=== PATIENT | female | born 1935 | race Caucasian/White ===

== ENCOUNTER → 2017-01-11 | Outpatient (CLI) | payer OTHER ==
[~2017-01-11] MED LIST: ACET-1311 PO; ASPEC325 PO; CAL PO; CALCTAB7 PO; CARB25TA12 PO; CLC100 PO; CLON0.5T3 PO; DICL-201 PO; FRRG PO; MULT-589 PO; POLY335019 PO; PRT40 PO
[2017-01-11 18:21] LABS: BASO % 0.2 %; BASO ABS # 0.02 K/uL (0-0.2); COMPLETE YES; EOS % 1.3 %; HEMATOCRIT 37.3 % (37-47); IG% 0.4 %; LYMPH % 31.4 %; LYMPH ABS # 3.04 K/uL (1.2-3.4); MEAN CELL VOLUME 90.1 fL (80-100); MEAN CORPUSCULAR HEMOGLOBIN 29.7 pg (25-34); MONO % 7.4 %; NEUT % 59.3 %; PLATELET COUNT 329 K/uL (130-400); RED BLOOD COUNT 4.14 M/uL (4.2-5.4); WHITE BLOOD COUNT 9.68 K/uL (4.8-10.8)
[2017-01-11 18:32] LABS: ALB/GLOB RATIO 0.7 (0.9-2); ALT/SGPT 22 U/L (12-78); AST/SGOT 15 U/L (15-37); BLOOD UREA NITROGEN 25 mg/dl (7-18); BUN/CREATININE RATIO 25.5 (10-20); CALCIUM 9.9 mg/dl (8.5-10.1); CARBON DIOXIDE 27 mmol/L (21-32); CHLORIDE 106 mmol/L (98-107); CREATININE 0.99 mg/dl (0.60-1.20); GLUCOSE 110 mg/dl (70-99); POTASSIUM 3.8 mmol/L (3.5-5.1); SODIUM 140 mmol/L (136-145)
[2017-01-11 18:42] LABS: ALKALINE PHOSPHATASE 82 U/L (45-117)
[2017-01-12 07:50] LABS: ESTIMATED AVERAGE GLUCOSE 126 mg/dl; HA1C FLAG Normal (Normal)
== END | disposition home or self-care (01) ==
LOC: C.LABSPEC 12:03
PROVIDERS: ATTEND Internal Medicine
DX: R73.9 Hyperglycemia, unspecified (principal); I10 Essential (primary) hypertension; G20 Parkinson's disease; F03.90 Unspecified dementia, unspecified severity, without behavioral disturbance, psychotic disturbance, mood disturbance, and anxiety

== ENCOUNTER 2017-08-29 13:05 | Emergency (ER) | payer OTHER ==
[~2017-08-29] VITALS: Ht 167.6 cm; Wt 67.9 kg
[2017-08-29 13:15] VITALS: TEMP 36.6; Ht 167.6 cm; Wt 67.9 kg
[2017-08-29] MEDS ORDERED: SODIUM CHLORIDE 0.9% 1000ML 1,000 ML IV ONE (13:29)
[2017-08-29] MEDS ORDERED: ACET-1311 PO (13:32)
--- NOTE | 2017-08-29 13:32 | EMERGENCY ROOM VISIT NOTE ---
History Report prepared by Kenneth: Barrington Marcelino Under the Supervision of: Dr. Deshawn Duarte M.D. First contact with patient: 13:23 Chief Complaint: OTHER COMPLAINT Stated Complaint: ABCESS History of Present Illness The patient is an 82 year old female who presents to the Emergency Room with complaints of constant pain in the right shoulder and upper extremity. The patient's pain is worsened with movement, and she is virtually unable to move the right upper extremity at all. She has had surgery on this joint in the past. The patient resides at [facility]. When the patient's grandson arrived at bedside I discussed the history with him again. He states that the patient has been having this pain for about the past month and did experience a falling episode about the same time ago. Source of History: patient Position: shoulder (Right) Timing: constant Modifying Factors (Worsening): other (ROM) Note: Patient is unable to move the RUE at all. Review of Systems See HPI for pertinent positives & negatives. A total of 10 systems reviewed and were otherwise negative. Past Medical & Surgical Medical Problems: (1) Dementia (2) Femoral Neck Fracture (3) FRACTURE R HUMERUS, PARKINSON'S, FALL (4) L HIP FX, PARKINSON'S DISEASE,FX R HUMERUS (5) MSC, PARKINSON'S (6) Parkinson disease (7) Scoliosis Family History Unobtainable due to patient's condition Social History Smoking Status: Never Smoker Drug Use: none Marital Status: Housing Status: retirement Occupation Status: retired Current/Historical Medications Scheduled Calcium Carbonate-Cholecalcife (Calcium 600 with Vitamin 600-400 mg-Unit), 1 TAB PO DAILY Carbidopa/Levodopa/Entacapone 25/100/200MG (Stalevo 100), 1 TAB PO TID Donepezil HCl (Aricept), 5 MG PO HS Polyethylene Glycol 3350 (Miralax), 17 GM PO DAILY Scheduled PRN Acetaminophen (Tylenol), 650 MG PO Q6 PRN for Pain Diclofenac (Voltaren), 75 MG PO BID PRN for Pain Magnesium Hydroxide (Milk of Magnesia), 30 ML PO DAILY PRN for Constipation Allergies Coded Allergies: Morphine (Verified Allergy, Mild, RASH, 03/30/16) Physical Exam Vital Signs Date Time Temp Pulse Resp B/P (MAP) Pulse Ox O2 Delivery O2 Flow Rate FiO2 08/29/17 17:13 73 18 184/85 96 08/29/17 15:58 79 18 174/90 97 Room Air 08/29/17 14:15 79 20 159/81 96 Room Air 08/29/17 14:15 96 Room Air 08/29/17 13:15 36.6 84 20 139/75 96 Room Air Physical Exam GENERAL: Awake, alert, well-appearing, in no acute distress HENT: Normocephalic, atraumatic. Oropharynx unremarkable. EYES: Normal conjunctiva. Sclera non-icteric. NECK: Supple. No nuchal rigidity. FROM. No JVD. RESPIRATORY: Clear to auscultation. CARDIAC: Regular rate, normal rhythm. Extremities warm and well perfused. Pulses equal. ABDOMEN: Soft, non-distended. No tenderness to palpation. No rebound or guarding. No masses. RECTAL: Deferred. MUSCULOSKELETAL: Chest examination reveals no tenderness. The back is symmetrical on inspection without obvious abnormality. There is no CVA tenderness to palpation. No joint edema. UPPER EXTREMITIES: The patient has what appears to be and abscess over the right shoulder area. There is an old surgical scar present. The shoulder appears to be frozen in place. She is exquisitely tender to touch and there is an area of erythema extending down the right elbow. LOWER EXTREMITIES: Calves are equal size bilaterally and non-tender. No edema. No discoloration. NEURO: Normal sensorium. No sensory or motor deficits noted. SKIN: No rash or jaundice noted. Medical Decision & Procedures ER Provider Diagnostic Interpretation: Radiology results as stated below per my review and radiologist interpretation: R SHOULDER MIN 2 VIEWS ROUTINE CLINICAL HISTORY: 82 years-old Female presenting with Pt c/o Rt shoulder pain. TECHNIQUE: Internal rotation, external rotation, and Grashey views of the right shoulder were obtained. COMPARISON: 04/02/2016. FINDINGS: Postsurgical changes of reverse total right shoulder arthroplasty. There is malalignment of the humeral component, which appears abnormally rotated and comparison to the prior radiographs. There may also be greater inferior subluxation than ideal. No gross evidence of a periprosthetic fracture. Surrounding osseous fragments are essentially unchanged since the prior radiographs. Osteopenia suspected. IMPRESSION: Possible malalignment of the humeral component. Query abnormal rotation and inferior subluxation. Orthopedic consult advised. Electronically signed by: Kings Ivey M.D. 08/29/2017 1:56 PM Dictated Date/Time: 08/29/2017 1:55 PM Laboratory Results 08/29/17 13:50 Red Blood Count 3.98, Mean Corpuscular Volume 88.7, Mean Corpuscular Hemoglobin 28.9, Mean Corpuscular Hemoglobin Concent 32.6, Mean Platelet Volume 8.5, Neutrophils (%) (Auto) 64.6, Lymphocytes (%) (Auto) 25.1, Monocytes (%) (Auto) 7.9, Eosinophils (%) (Auto) 2.0, Basophils (%) (Auto) 0.2, Neutrophils # (Auto) 5.96, Lymphocytes # (Auto) 2.32, Monocytes # (Auto) 0.73, Eosinophils # (Auto) 0.18, Basophils # (Auto) 0.02 08/29/17 13:50 Test 08/29/17 13:50 08/29/17 13:58 White Blood Count 9.23 K/uL (4.8-10.8) Red Blood Count 3.98 M/uL (4.2-5.4) Hemoglobin 11.5 g/dL (12.0-16.0) Hematocrit 35.3 % (37-47) Mean Corpuscular Volume 88.7 fL (80-100) Mean Corpuscular Hemoglobin 28.9 pg (25-34) Mean Corpuscular Hemoglobin Concent 32.6 g/dl (32-36) Platelet Count 346 K/uL (130-400) Mean Platelet Volume 8.5 fL (7.4-10.4) Neutrophils (%) (Auto) 64.6 % Lymphocytes (%) (Auto) 25.1 % Monocytes (%) (Auto) 7.9 % Eosinophils (%) (Auto) 2.0 % Basophils (%) (Auto) 0.2 % Neutrophils # (Auto) 5.96 K/uL (1.4-6.5) Lymphocytes # (Auto) 2.32 K/uL (1.2-3.4) Monocytes # (Auto) 0.73 K/uL (0.11-0.59) Eosinophils # (Auto) 0.18 K/uL (0-0.5) Basophils # (Auto) 0.02 K/uL (0-0.2) RDW Standard Deviation 44.8 fL (36.4-46.3) RDW Coefficient of Variation 13.6 % (11.5-14.5) Immature Granulocyte % (Auto) 0.2 % Immature Granulocyte # (Auto) 0.02 K/uL (0.00-0.02) Prothrombin Time 10.0 SECONDS (9.0-12.0) Prothromb Time International Ratio 1.0 (0.9-1.1) Activated Partial Thromboplast Time 23.2 SECONDS (21.0-31.0) Partial Thromboplastin Ratio 0.9 Anion Gap 6.0 mmol/L (3-11) Est Creatinine Clear Calc Drug Dose 44.9 ml/min Estimated GFR () 67.7 Estimated GFR (Non- 58.4 BUN/Creatinine Ratio 24.0 (10-20) Calcium Level 9.5 mg/dl (8.5-10.1) Total Bilirubin 0.4 mg/dl (0.2-1) Aspartate Amino Transf (AST/SGOT) 16 U/L (15-37) Alanine Aminotransferase (ALT/SGPT) 13 U/L (12-78) Alkaline Phosphatase 96 U/L (45-117) Total Protein 7.9 gm/dl (6.4-8.2) Albumin 3.0 gm/dl (3.4-5.0) Globulin 4.9 gm/dl (2.5-4.0) Albumin/Globulin Ratio 0.6 (0.9-2) Bedside Lactic Acid Venous 1.48 mmol/L (0.90-1.70) Labs reviewed by ED physician. Medications Administered Medications (Trade) Dose Ordered Sig/Дмитрий Route Start Time Stop Time Status Last Admin Dose Admin Sodium Chloride 1,000 ml @ 999 mls/hr Q1H1M ONCE IV 08/29/17 13:29 08/29/17 14:29 DC 08/29/17 14:13 999 MLS/HR ECG Per My Interpretation Indication: back/shoulder pain Rate (beats per minute): 77 Rhythm: normal sinus Findings: other (No FARHAD/STD, Normal Star) ED Course 1326: Past medical records reviewed. The patient was evaluated in room C9. A complete history and physical examination was performed. 1329: Ordered Sodium Chloride 1000 mL @ 999 mL/hr IV. 1346: I discussed the case with Dr. Arturo - Orthopedics. He states that the patient can follow-up in the office tomorrow. 1407: I discussed the specifics of the case in detail with the patient's daughter via a phone call. They are in agreement with the treatment plan. The patient will be discharged back to [facility]. Medical Decision Differential diagnosis: Etiologies such as fracture, dislocation, neurovascular compromise, compartment syndrome, soft tissue injury, as well as others were entertained. This is an 82-year-old female who presents emergency department complaining of what appears to be a cellulitic area to the right upper extremity. I did discuss this patient with both her primary care physician as well as Dr. Marks. Dr. Marks is concerned that the patient has a separation of her right shoulder arthroplasty. She was given a normal saline bolus here in the emergency department. Dr. Marks believes that this is the cause of the patient's symptoms. I will note that the patient does not have an elevation in her white blood cell count. Dr. Marks wishes to see the patient in the office tomorrow. She is hemodynamically stable I feel safe enough to be discharged. I did discuss this with the patient's daughter who is the POA who was also in agreement with the treatment plan. It is hard to nail down exactly when the patient's shoulder became , I suspect it was due to a fall approximately 1 month ago though the daughter notes the patient has been unable to move the shoulder since her surgery. Medication Reconcilliation Current Medication List: was personally reviewed by me Blood Pressure Screening Patient's blood pressure: Elevated blood pressure Blood pressure disposition: Elevated BP felt to be situational Consults Time Called: 1341 Consulting Physician: Dr. Arturo Yanez [facility] Returned Call: [phone] I discussed the case with Dr. Arturo Zendejas. He states that the patient can follow-up in the office tomorrow. Impression Primary Impression: Dislocation, shoulder closed Scribe Attestation The scribe's documentation has been prepared under my direction and personally reviewed by me in its entirety. I confirm that the note above accurately reflects all work, treatment, procedures, and medical decision making performed by me. Departure Information Dispostion Home / Self-Care Referrals Thony Randhawa M.D. (PCP) Forms HOME CARE DOCUMENTATION FORM, IMPORTANT VISIT INFORMATION, WORK / SCHOOL INSTRUCTIONS Patient Instructions My [facility] Additional Instructions NEED FOLLOW UP WITH DR MARKS'S OFFICE TOMORROW NEED CARTER Banks Confer available on telephone for Dr Marks You have been examined and treated today on an emergency basis only. This is not a substitute for, or an effort to provide, complete comprehensive medical care. It is impossible to recognize and treat all injuries or illnesses in a single emergency department visit. It is therefore important that you follow up closely with Dr Ted Garcia. Call as soon as possible for an appointment. Thank you for your time and consideration. I look forward to speaking with you again soon. Please don't hesitate to call us if you have any questions. Problem Qualifiers Primary Impression: Dislocation, shoulder closed Encounter type: initial encounter Laterality: right Qualified Codes: S43.004A - Unspecified dislocation of right shoulder joint, initial encounter
[2017-08-29] MEDS ORDERED: CALC-585 PO (13:34)
[2017-08-29] MEDS ORDERED: CARBTAB2 PO (13:36)
[2017-08-29] MEDS ORDERED: DICL-201 PO (13:41)
[2017-08-29] MEDS ORDERED: MOMLX PO (13:43)
[2017-08-29] MEDS ORDERED: POLY335019 PO (13:43)
[2017-08-29] MEDS ORDERED: DONE5TAB9 PO (13:44)
--- NOTE | 2017-08-29 13:58 | DIAGNOSTIC IMAGING REPORT ---
R SHOULDER MIN 2 VIEWS ROUTINE CLINICAL HISTORY: 82 years-old Female presenting with Pt c/o Rt shoulder pain. TECHNIQUE: Internal rotation, external rotation, and Grashey views of the right shoulder were obtained. COMPARISON: 04/02/2016. FINDINGS: Postsurgical changes of reverse total right shoulder arthroplasty. There is malalignment of the humeral component, which appears abnormally rotated and comparison to the prior radiographs. There may also be greater inferior subluxation than ideal. No gross evidence of a periprosthetic fracture. Surrounding osseous fragments are essentially unchanged since the prior radiographs. Osteopenia suspected. IMPRESSION: Possible malalignment of the humeral component. Query abnormal rotation and inferior subluxation. Orthopedic consult advised. Electronically signed by: Kings Ivey M.D. 08/29/2017 1:56 PM Dictated Date/Time: 08/29/2017 1:55 PM
[2017-08-29 14:15] VITALS: O2SAT 96
[2017-08-29 14:18] LABS: BASO % 0.2 %; BASO ABS # 0.02 K/uL (0-0.2); EOS ABS # 0.18 K/uL (0-0.5); HEMATOCRIT 35.3 % (37-47); HEMOGLOBIN 11.5 g/dL (12.0-16.0); IG# 0.02 K/uL (0.00-0.02); LYMPH % 25.1 %; LYMPH ABS # 2.32 K/uL (1.2-3.4); MEAN CELL VOLUME 88.7 fL (80-100); MEAN CORPUSCULAR HEMOGLOBIN 28.9 pg (25-34); MEAN CORPUSCULAR HGB CONC 32.6 g/dl (32-36); MEAN PLATELET VOLUME 8.5 fL (7.4-10.4); MONO % 7.9 %; MONO ABS # 0.73 K/uL (0.11-0.59); NEUT % 64.6 %; NEUT ABS # 5.96 K/uL (1.4-6.5); PLATELET COUNT 346 K/uL (130-400); RED CELL DISTRIBUTION WIDTH CV 13.6 % (11.5-14.5); RED CELL DISTRIBUTION WIDTH SD 44.8 fL (36.4-46.3); WHITE BLOOD COUNT 9.23 K/uL (4.8-10.8)
[2017-08-29 14:26] LABS: PTT PATIENT 23.2 SECONDS (21.0-31.0)
[2017-08-29 14:35] LABS: CALCIUM 9.5 mg/dl (8.5-10.1); CREATININE 0.92 mg/dl (0.60-1.20); POTASSIUM 3.8 mmol/L (3.5-5.1)
[2017-08-29 14:37] LABS: TOTAL PROTEIN 7.9 gm/dl (6.4-8.2)
[2017-08-29 17:13] VITALS: BP 184/85; PULSE 73; O2SAT 96
--- NOTE | 2017-08-30 07:18 | DIAGNOSTIC IMAGING REPORT ---
CHEST ONE VIEW PORTABLE CLINICAL HISTORY: 82 years-old Female presenting with Sepsis. TECHNIQUE: Portable upright AP view of the chest was obtained. COMPARISON: 03/30/2016. FINDINGS: Atherosclerosis of aortic arch. Cardiac silhouette enlarged. Lungs and pleural spaces clear. Osteopenia. Scoliotic curvature of the spine. Interval replacement of the right humeral hardware with a reverse total right shoulder arthroplasty. The metaphyseal component appears somewhat more inferiorly subluxed than expected. Upper abdomen normal. IMPRESSION: 1. Cardiomegaly. No other convincing evidence of acute cardiopulmonary disease. 2. Possible inferior subluxation of the metaphyseal component of the reverse right total shoulder arthroplasty. Correlate clinically. Electronically signed by: Kings Ivey M.D. 08/30/2017 7:16 AM Dictated Date/Time: 08/30/2017 7:15 AM
== END 2017-08-29 17:09 | disposition home or self-care (01) ==
LOC: EDBD 13:05 → C.EDC 13:07
DX: S43.004A Unspecified dislocation of right shoulder joint, initial encounter (principal); X58.XXXA Exposure to other specified factors, initial encounter; Y92.129 Unspecified place in nursing home as the place of occurrence of the external cause; M25.511 Pain in right shoulder; G31.83 Neurocognitive disorder with Lewy bodies

== ENCOUNTER 2018-06-08 09:55 | Inpatient (IN) ==
[2018-06-08] MEDS ORDERED: SODIUM CHLORIDE 0.9% 1000ML 250 ML IV ONE (10:58)
[2018-06-08] MEDS ORDERED: SODIUM CHLORIDE 0.9% 1000ML 1,000 ML IV SCH (11:00)
[2018-06-08 11:29] LABS: Basophils # (auto) 0.01 K/uL (0-0.2); Basophils % (auto) 0.1 %; Eosinophils # (auto) 0.09 K/uL (0-0.5); Hematocrit (blood only) 35.5 % (37-47); Hemoglobin 11.2 g/dL (12.0-16.0); Immature Granulocytes # (auto) 0.04 K/uL (0.00-0.02); Immature Granulocytes % (auto) 0.4 %; Lymphocytes # (auto) 2.39 K/uL (1.2-3.4); Lymphocytes % (auto) 26.7 %; Mean Corpuscular Hgb Conc 31.5 g/dL (32-36); Mean Corpuscular Volume 82.8 fL (80-100); Mean Platelet Volume 8.5 fL (7.4-10.4); Monocytes # (auto) 0.64 K/uL (0.11-0.59); Monocytes % (auto) 7.2 %; Neutrophils # (auto) 5.78 K/uL (1.4-6.5); Neutrophils % (auto) 64.6 %; Platelet Count 415 K/uL (130-400); RDW Coefficient of Variation 15.5 % (11.5-14.5); Red Blood Count 4.29 M/uL (4.2-5.4); White Blood Count 8.95 K/uL (4.8-10.8)
--- NOTE | 2018-06-08 11:39 | CT Scan Report ---
CT head/brain wo con CLINICAL HISTORY: Acute change in mental status COMPARISON STUDY: 03/03/2016 TECHNIQUE: Axial CT of the brain is performed from the vertex to the skull base. IV contrast was not administered for this examination. A dose lowering technique was utilized adhering to the principles of ALARA. CT DOSE: 537.48 mGy.cm FINDINGS: No intra or extra-axial mass lesions are visualized. There is no CT evidence of acute cortical infarc tion. There is no evidence of midline shift. There is no acute hemorrhage. No calvarial fractures ar e visualized. There are patchy white matter hypodensities likely on a small vessel basis. There is no evidence of pathologic ventricular dilatation. There is a sphenoid sinus air-fluid level, multiple ethmoid air cells are opacified. IMPRESSION: 1. No acute intracranial findings 2. Sphenoid sinus air-fluid level. Multiple opacified ethmoid air cells. Clinical correlation in rega rds to acute sinusitis is recommended. Electronically signed by: Dylon Burnett M.D. 06/08/2018 11:37 AM
[2018-06-08 11:45] LABS: Alanine Aminotransferase 8 U/L (12-78); Albumin Level 3.7 gm/dl (3.4-5.0); Aspartate Aminotransferase 10 U/L (15-37); BUN Creatinine Ratio 30.6 (10-20); Blood Urea Nitrogen 57 mg/dl (7-18); Calcium 9.7 mg/dl (8.5-10.1); Carbon Dioxide 21 mmol/L (21-32); Chloride 101 mmol/L (98-107); Est GFR (African American) 28.7; Est GFR (Non-African American) 24.8; Glucose 104 mg/dl (70-99); Magnesium 3.3 mg/dl (1.8-2.4); Sodium 132 mmol/L (136-145)
[2018-06-08 11:55] LABS: Albumin Globulin Ratio 0.7 (0.9-2); Alkaline Phosphatase 90 U/L (45-117); Bilirubin,Total 0.3 mg/dl (0.2-1); Globulin 5.6 gm/dl (2.5-4.0); Total Protein 9.3 gm/dl (6.4-8.2)
--- NOTE | 2018-06-08 11:55 | XRay Report ---
XR chest 1V portable CLINICAL HISTORY: weakness COMPARISON STUDY: Chest radiograph August 29, 2017. FINDINGS: Lung volumes are normal. There is no pneumothorax or pleural effusion. No consolidation or evidence for pulmonary edema. Cardiomediastinal silhouette is normal. There is apparent subluxation/d islocation of the right shoulder arthroplasty. IMPRESSION: 1. No acute cardiopulmonary findings. 2. Apparent subluxation/dislocation of the right shoulder arthroplasty. Electronically signed by: Tanner Jovel M.D. 06/08/2018 11:53 AM
[2018-06-08] MEDS ORDERED: AMPICILLIN/SULBACTAM SOD 3,000 MG in 0.9 % SODIUM CHLORIDE 100 ML IV STA (13:05)
[2018-06-08 13:46] LABS: Appearance Urine Clear (Clear); Bilirubin Urine Negative (Negative); Color Urine Yellow; Glucose Urine UA Negative (Negative); Ketones Urine 1+ (Negative); Leukocyte Esterase Urine Negative (Negative); Nitrite Urine Negative (Negative); Protein Urine Negative (Negative); Specific Gravity Urine 1.025 (1.000-1.030); Urobilinogen Urine Negative (Negative)
--- NOTE | 2018-06-08 15:35 | History & Physical Report ---
Date of Service June 08, 2018 Assessment & Plan (1) MIGUELANGEL (acute kidney injury): BUN: 57, Cr: 1.8, GFR: 24, BUN/Cr ratio: 30. Baseline Cr 0.9 with baseline GFR 58 to >60 Pt dry on exam. Also has been on bactrim and takes diclofenac daily In ER was given 250ml bolus NSS -IVF -avoid nephrotoxic agents when possible -monitor renal functions (2) Altered mental status: Pt with hx Parkinson's, dementia. Reported pt with increased garbled speech today with lethargy, global weakness and CHUN In ER no leukocytosis. UA unremarkable. CT HEAD: No acute intracranial findings. Sphenoid sinus air-fluid level. Multiple opacified ethmoid air cells. CXR: No acute cardiopulmonary findings. May be secondary to infection -MRI to r/o stroke/lesion -neuro checks Q4H -if no improvement consider neuro consult (3) Wound of right shoulder: Reported chronic wound to R shoulder. and wound to R shoulder and that had some foul smelling purulent discharge noted on 05/26/18 and pt was started on Bactrim. wound culture: staph aureus which was resistant to PCN G. In ER pt afebrile, P: 82, R: 16, BP: 174/62, 95% on RA. WBC: 8, lactate: 0.8 -wound culture pending -blood culture pending -Rocephin, daptomycin -wound consult -cbc in am (4) Shoulder subluxation, right: It is reported that pt has chronic deformity to R shoulder. Hx R humeral fracture with ORIF in 02/2016 then with failure of internal fixation and pt had R shoulder replacement in 03/2016. -Apparent subluxation/dislocation of the right shoulder arthroplasty seen on CXR today. -Last R shoulder xray found was from 08/2017: Possible malalignment of the humeral component. Query abnormal rotation and inferior subluxation. -continue tylenol prn pain -for now will hold tramadol with pt's altered symptoms -Ortho consult, appreciate recommendations (5) Chronic anemia: Hx Chronic anemia Hgb: 11.2. Baseline 9-10. -continue iron supplement -monitor H&H (6) Parkinson disease: (7) Dementia: -continue carbidopa-levodopa, donepezil DVT Prophylaxis -Heparin SQ DNR as per [facility] records Follows with Dr Bailon for routine care Pt was seen with Dr Dietrich. See addendum History of Present Illness Chief Complaint: Altered speech Primary Care Provider: Rachel Bailon DO Pt is 83 y/o F with PMH Parkinson's, dementia presented to ER from [facility] for reported lethargy, garbled speech, weakness and reported CHUN this morning. Was evaluated approx 9am per records and reported global weakness, lethargy and pt had reported CHUN since waking up. [facility] records report pt's baseline is that she is oriented with speech limitations but can carry conversation and ambulates with walker. Currently pt oriented to person, knows her age, unsure of year, knows she has been to this facility before but is unsure of name or place. Pt reports some cough. Also reports vomiting and that she had some upper abdominal discomfort. Reports chronic constipation. She has hx R humeral fracture with ORIF in 02/2016 then with failure of internal fixation and pt had R shoulder replacement in 03/2016. It is reported that pt has chronic deformity and wound to R shoulder and that had some foul smelling purulent discharge noted on 05/26/18 and pt was started on Bactrim. wound culture : staph aureus which was resistant to PCN G. Pt reports had limited ROM R shoulder "for awhile", doesn't think had acute injury. Denies fever/chills, diaphoresis, N/V/D, dizziness, falls, vision changes, CP, SOB, rhinorrhea, paresthesias, urinary symptoms. Unable to obtain FH. Allergies Allergy/AdvReac Type Severity Reaction Status Date / Time morphine Allergy Mild RASH Verified 06/08/18 11:56 Home Medications Home Medications Medication Instructions Recorded Confirmed Type acetaminophen 325 mg tablet 650 mg PO Q6H PRN tab 01/12/18 06/08/18 History acetaminophen 500 mg capsule 1,000 mg PO .q 12 cap 01/12/18 06/08/18 History calcium carbonate 600 mg-vitamin 600 tab PO DAILY tab 01/12/18 06/08/18 History D3 1,000 unit-vitamin K2 90 mcg tab carbidopa 25 mg-levodopa 100 1 tab PO TID 01/12/18 06/08/18 History mg-entacapone 200 mg tablet diclofenac sodium 75 mg 75 mg PO BID 01/12/18 06/08/18 History tablet,delayed release donepezil 5 mg tablet 5 mg PO HS tab 01/12/18 06/08/18 History polyethylene glycol 3350 17 17 gm PO QAM gm 01/12/18 06/08/18 History gram/dose oral powder ranitidine 150 mg tablet 150 mg PO HS tab 01/12/18 06/08/18 History ferrous sulfate 325 mg PO QAM 06/08/18 06/08/18 History sennosides [senna] 8.6 mg PO HS 06/08/18 06/08/18 History sulfamethoxazole-trimethoprim 1 tab PO BID 06/08/18 06/08/18 History tramadol 25 mg PO Q6H PRN 06/08/18 06/08/18 History Past Med/Surg History Medical History Chronic anemia (Chronic) Parkinson disease (Chronic) Dementia (Chronic) Scoliosis (Chronic) Dementia (Chronic) Fall (Chronic) Femoral neck fracture (Chronic) Fracture of right humerus (Chronic) Parkinsons (Chronic) S/p left hip fracture (Chronic) Scoliosis (Chronic) Surgical History History of left hip replacement (Resolved) History of arthroplasty of right shoulder (Resolved) 2016 - Dr Morris Social History Current Living Situation: Assisted Current Living Situation Comment: [facility], memory care unit Feels Safe at Home: Yes Safety Concerns: Feels Safe At This Time Smoking Status: Never smoker Do You Dip or Chew Tobacco: No Hx Alcohol Use: No Hx Substance Use: No Communication Ability: Impaired Communication Ability Comment: mumbling speech patteren, able to make needs known Custodial Laborer Required: No Review of Systems See HPI, further ROS unable to be obtained secondary mental status Physical Exam 2 Vital Signs (Past 24 Hours): Last Vital Signs Temp 37.0 C 06/08/18 10:05 Pulse 76 06/08/18 14:42 Resp 15 06/08/18 14:42 BP 131/64 06/08/18 14:42 Pulse Ox 94 06/08/18 14:42 Physical Exam: General: no acute distress, WDWN Head: normocephalic, atraumatic Eyes: PERRL, EOM's intact, conjunctiva non-injected, anicteric ENT: normal inspection external ears, nose, mucous membranes dry Neck: supple, trachea midline, non-tender Lungs: clear, no respiratory distress, no wheezing/rhonchi/rales CV: RRR, no murmur, no pretibial edema Abd: normal BS, soft, upper abdominal tenderness to palpation Ext: no cyanosis, no calf tenderness; R shoulder: +wound with purulent drainage anterior shoulder, limited ROM R shoulder and R arm, distal pulses palpable, brisk capillary refill diffuse extremity weakness, able to move LUE, and straight leg raise BLE Neuro: A&O to person, unsure of place or time. n +flat faces, garbled speech, no facial drooping. Skin: warm, dry, R shoulder as above Results & Data Laboratory Results Short CBC 06/08/18 Range/Units 11:15 WBC 8.95 (4.8-10.8) K/uL Hgb 11.2 L (12.0-16.0) g/dL Hct 35.5 L (37-47) % Plt Count 415 H (130-400) K/uL BMP 06/08/18 11:15 Sodium 132 L Potassium 5.0 Chloride 101 Carbon Dioxide 21 BUN 57 H Creatinine 1.86 H Glucose 104 H Calcium 9.7 Liver Function 06/08/18 Range/Units 11:15 Total Bilirubin 0.3 (0.2-1) mg/dl AST 10 L (15-37) U/L ALT 8 L (12-78) U/L Alkaline Phosphatase 90 (45-117) U/L Albumin 3.7 (3.4-5.0) gm/dl Urine 06/08/18 Range/Units 13:20 Urine Color Yellow Urine Appearance Clear (Clear) Urine pH 5.0 (4.5-7.5) Ur Specific [place] 1.025 (1.000-1.030) Urine Protein Negative (Negative) Urine Glucose (UA) Negative (Negative) Lactate 0.8 (0.4-2.0) Diagnostic Findings CT HEAD: IMPRESSION: 1. No acute intracranial findings 2. Sphenoid sinus air-fluid level. Multiple opacified ethmoid air cells. Clinical correlation in regards to acute sinusitis is recommended. CXR: IMPRESSION: 1. No acute cardiopulmonary findings. 2. Apparent subluxation/dislocation of the right shoulder arthroplasty. ECG Rate (beats per minute): 77 Rhythm: sinus rhythm Additional Comments: poor tracing Supervising Physician Co-Signing Physician Notes Patient is an 83 yr female with history of Parkinson's disease, dementia and other problems presents with history of pathology, normal speech, generalized weakness, headache and possible confusion. History is difficult to obtain secondary to garbled speech. Please review HPI for complete presentation. Her CT head showed No acute intracranial findings, but showed possible sinusitis. She clinically looked dehydrated and her Cr is elevated 1.86. She was placed on Bactrim for R shoulder wound Infection recently. Also was on diclofenac for pain Control. She was also noted to have chronic subluxation of the right shoulder arthroplasty with significant change in alignment. On Exam Patient is chronic ill appearing, lungs CTA, S1, S2, No pedal edema. Right shoulder wound with purulent drainage noted, RUE is limited ROM. Neuro:able to move all extremities. Acute renal Insufficiency--Plan to start on IV fluids, discontinue bactrim, diclofenac. monitor renal function. Metabolic Encephalopathy--likely 2/ 2 should wound infection. R/O CVA. Will be started on Doxy and Ceftriaxone. Blood and wound cultures will be obtained. Orthopedics consulted. Will also obtain MRI brain to r/o acute intracranial abnormalities. Consider Neurology eval if no improvement. Speech eval ordered. _ (1) Altered mental status Altered mental status type: unspecified Coma depth: Coma timing: Qualified Code(s): R41.82 - Altered mental status, unspecified
--- NOTE | 2018-06-08 15:46 | Emergency Department Note ---
Entered by Zulma Hanson acting as a scribe for History of Present Illness General Chief complaint: Altered Mental Status Stated complaint: ams/weakness, [facility] Limitations: altered mental status History of Present Illness Provider complaint: altered mental status Onset (ago): day(s) (recently) Location: head Pain Consistency: + other (episode) Quality: + other (altered mental status) Associated symptoms: + other (Associated symptoms: "not acting herself", lack of voiding) The patient is an 83 year old woman who presents to the Emergency Room with complaints of an episode of altered mental status beginning recently. Patient arrives from [facility]. Nursing notes state the patient was "not acting herself." Per reports she did not void yesterday. History limited secondary to patient's altered mental status. Home Medications Home Medications Medication Instructions Recorded Confirmed Type acetaminophen 325 mg tablet 650 mg PO Q6H PRN tab 01/12/18 06/08/18 History acetaminophen 500 mg capsule 1,000 mg PO .q 12 cap 01/12/18 06/08/18 History calcium carbonate 600 mg-vitamin 600 tab PO DAILY tab 01/12/18 06/08/18 History D3 1,000 unit-vitamin K2 90 mcg tab carbidopa 25 mg-levodopa 100 1 tab PO TID 01/12/18 06/08/18 History mg-entacapone 200 mg tablet diclofenac sodium 75 mg 75 mg PO BID 01/12/18 06/08/18 History tablet,delayed release donepezil 5 mg tablet 5 mg PO HS tab 01/12/18 06/08/18 History polyethylene glycol 3350 17 17 gm PO QAM gm 01/12/18 06/08/18 History gram/dose oral powder ranitidine 150 mg tablet 150 mg PO HS tab 01/12/18 06/08/18 History ferrous sulfate 325 mg PO QAM 06/08/18 06/08/18 History sennosides [senna] 8.6 mg PO HS 06/08/18 06/08/18 History sulfamethoxazole-trimethoprim 1 tab PO BID 06/08/18 06/08/18 History tramadol 25 mg PO Q6H PRN 06/08/18 06/08/18 History Allergies Allergy/AdvReac Type Severity Reaction Status Date / Time morphine Allergy Mild RASH Verified 06/08/18 11:56 Past Med/Surg History Medical History Chronic anemia (Chronic) Parkinson disease (Chronic) Dementia (Chronic) Scoliosis (Chronic) Dementia (Chronic) Fall (Chronic) Femoral neck fracture (Chronic) Fracture of right humerus (Chronic) Parkinsons (Chronic) S/p left hip fracture (Chronic) Scoliosis (Chronic) Surgical History History of left hip replacement (Resolved) History of arthroplasty of right shoulder (Resolved) 2016 - Dr Morris Social History Current Living Situation: [facility] Current Living Situation Comment: [facility], memory care unit Feels Safe at Home: Yes Safety Concerns: Feels Safe At This Time Smoking Status: Never smoker Do You Dip or Chew Tobacco: No Hx Alcohol Use: No Hx Substance Use: No Communication Ability: Impaired Review of Systems Unobtainable due to cognitive status Physical Exam Vital Signs Vital Signs - 24 hr 06/10/18 07:50 06/10/18 11:28 06/10/18 11:43 Temperature 36.8 C 36.8 C Temperature Source Oral Oral Pulse Rate Pulse Rate [Apical] Pulse Rate [Brachial] 86 59 L Pulse Rhythm [Brachial] Pulse Strength [Brachial] Respiratory Rate 16 18 Respiratory Effort / Characteristics Non-Labored Respiratory Depth Normal Respiratory Pattern Regular Blood Pressure [Left Arm] Blood Pressure [Right Arm] 153/77 H 122/82 Blood Pressure Mean [Left Arm] Blood Pressure Mean [Right Arm] 102 95 Blood Pressure Position [Left Arm] Blood Pressure Position [Right Arm] Lying Pulse Oximetry 95 97 Oxygen Delivery Method Room Air Room Air 06/10/18 15:04 06/10/18 19:43 06/10/18 22:38 Temperature 36.4 C L 36.9 C 36.5 C Temperature Source Oral Oral Oral Pulse Rate Pulse Rate [Apical] 91 H Pulse Rate [Brachial] 102 H 92 H Pulse Rhythm [Brachial] Pulse Strength [Brachial] Respiratory Rate 16 18 20 Respiratory Effort / Characteristics Respiratory Depth Respiratory Pattern Blood Pressure [Left Arm] Blood Pressure [Right Arm] 120/69 163/66 H 110/79 Blood Pressure Mean [Left Arm] Blood Pressure Mean [Right Arm] 86 98 89 Blood Pressure Position [Left Arm] Blood Pressure Position [Right Arm] Lying Lying Lying Pulse Oximetry 96 97 94 Oxygen Delivery Method Room Air Room Air Room Air 06/10/18 22:44 06/10/18 23:46 06/11/18 03:09 Temperature 36.8 C Temperature Source Oral Pulse Rate 89 Pulse Rate [Apical] Pulse Rate [Brachial] 88 Pulse Rhythm [Brachial] Regular Pulse Strength [Brachial] Normal Respiratory Rate 16 Respiratory Effort / Characteristics Non-Labored Non-Labored Respiratory Depth Normal Normal Respiratory Pattern Regular Regular Blood Pressure [Left Arm] 128/72 Blood Pressure [Right Arm] Blood Pressure Mean [Left Arm] 90 Blood Pressure Mean [Right Arm] Blood Pressure Position [Left Arm] Lying Blood Pressure Position [Right Arm] Pulse Oximetry 97 Oxygen Delivery Method Room Air Room Air Vital signs reviewed. General: Chronically ill-appearing elderly woman, somnolent but arousal to voice HEENT: No scleral icterus, PERRLA, neck supple. Atraumatic. Dry mucous membranes. Cardiovascular: Regular rate and rhythm, no extra sounds. bilaterallyPulmonary: Coarse breath sounds at the bases Abdomen: Soft, nontender, nondistended, positive bowel sounds. Musculoskeletal: Atraumatic, no peripheral edema. Neurologic: Unable to follow commands, Skin: Warm, dry, no rash. Linear wound to right axilla, dressing in place. Blanchable vascular deformity to right bicep, appears to be superficial, nontender. Course 1055: Past medical records reviewed. The patient was evaluated in room C5, and a complete history and physical examination were performed. 1354: I reevaluated the patient. 1421: I [facility] the [facility] He will evaluate the patient for further management. Consultations Consultation #1: [facility] He will evaluate the patient for further management. Time: 14:21 Administered Medications Acetaminophen (Tylenol) 650 mg PO Q4H PRN PRN Reason: Pain or Fever Stop: 07/08/18 16:53 Last Admin: 06/09/18 10:43 Dose: 650 mg Carbidopa/Levodopa (Sinemet 25/100 Mg) 1 tab PO TID ZOIE Stop: 07/08/18 20:59 Last Admin: 06/10/18 20:51 Dose: 1 tab Admin: 06/10/18 13:48 Dose: 1 tab Admin: 06/10/18 08:19 Dose: 1 tab Admin: 06/09/18 20:23 Dose: 1 tab Admin: 06/09/18 14:29 Dose: 1 tab Admin: 06/09/18 09:28 Dose: 1 tab Admin: 06/08/18 20:30 Dose: 1 tab Donepezil HCl (Aricept) 5 mg PO HS ZOIE Stop: 07/08/18 20:59 Last Admin: 06/10/18 20:51 Dose: 5 mg Admin: 06/09/18 20:24 Dose: 5 mg Admin: 06/08/18 20:30 Dose: 5 mg Entacapone (Comtan) 200 mg PO TID OZIE Stop: 07/08/18 20:59 Last Admin: 06/10/18 20:51 Dose: 200 mg Admin: 06/10/18 13:48 Dose: 200 mg Admin: 06/10/18 08:19 Dose: 200 mg Admin: 06/09/18 20:24 Dose: 200 mg Admin: 06/09/18 14:29 Dose: 200 mg Admin: 06/09/18 09:28 Dose: 200 mg Admin: 06/08/18 20:30 Dose: 200 mg Ferrous Sulfate (Feosol) 325 mg PO QAM ZOIE Stop: 07/09/18 08:59 Last Admin: 06/10/18 08:19 Dose: 325 mg Admin: 06/09/18 09:27 Dose: 325 mg Heparin Sodium (Porcine) (Heparin Sodium (Porcine)) 5,000 units SQ Q8 ZOIE Stop: 07/08/18 21:59 Last Admin: 06/11/18 06:13 Dose: Not Given Admin: 06/10/18 20:52 Dose: 5,000 units Admin: 06/10/18 13:48 Dose: 5,000 units Admin: 06/10/18 05:55 Dose: 5,000 units Admin: 06/09/18 22:25 Dose: 5,000 units Admin: 06/09/18 14:29 Dose: Not Given Admin: 06/09/18 05:26 Dose: 5,000 units Admin: 06/08/18 20:37 Dose: 5,000 units Ceftriaxone Sodium (Rocephin) 1,000 mg in 50 mls @ 100 mls/hr IV Q24H ZOIE Stop: 06/18/18 16:59 Last Infusion: 06/10/18 18:30 Dose: 0 mls/hr Admin: 06/10/18 17:47 Dose: 100 mls/hr Infusion: 06/09/18 18:38 Dose: 0 mls/hr Admin: 06/09/18 17:55 Dose: 100 mls/hr Infusion: 06/08/18 18:11 Dose: 0 mls/hr Admin: 06/08/18 17:38 Dose: 100 mls/hr Daptomycin 225 mg/ Syringe 4.5 mls @ 3 mls/min IV Q48H ZOIE; Protocol Stop: 06/18/18 17:59 Last Admin: 06/10/18 17:47 Dose: 3 mls/min Ranitidine HCl (Zantac) 150 mg PO HS ZOIE Stop: 07/08/18 20:59 Last Admin: 06/10/18 20:52 Dose: 150 mg Admin: 06/09/18 20:24 Dose: 150 mg Admin: 06/08/18 20:30 Dose: 150 mg Sennosides (Senokot) 8.6 mg PO [facility] Stop: 07/08/18 20:59 Last Admin: 06/10/18 20:51 Dose: 8.6 mg Admin: 06/09/18 20:24 Dose: 8.6 mg Admin: 06/08/18 20:30 Dose: 8.6 mg Discontinued Medications Sodium Chloride (Nss 1000ml) 250 mls @ 999 mls/hr IV .Q16M ONE Stop: 06/08/18 11:13 Last Infusion: 06/08/18 12:01 Dose: 0 mls/hr Admin: 06/08/18 11:45 Dose: 999 mls/hr Sodium Chloride (Nss 1000ml) 1,000 mls @ 125 mls/hr IV .Q8H ZOIE Stop: 07/08/18 10:59 Last Infusion: 06/08/18 16:28 Dose: 0 mls/hr Infusion: 06/08/18 16:28 Dose: 0 mls/hr Admin: 06/08/18 12:11 Dose: 125 mls/hr Ampicillin Sodium/Sulbactam Sodium 3,000 mg/ Sodium Chloride 108 mls @ 200 mls/ hr IV NOW STA Stop: 06/08/18 13:37 Last Infusion: 06/08/18 14:05 Dose: 0 mls/hr Admin: 06/08/18 13:30 Dose: 200 mls/hr Sodium Chloride (Nss 1000ml) 1,000 mls @ 80 mls/hr IV .[id number] ZOIE Stop: 06/09/18 17:53 Last Infusion: 06/09/18 17:56 Dose: 0 mls/hr Admin: 06/09/18 05:25 Dose: 80 mls/hr Infusion: 06/09/18 05:25 Dose: 80 mls/hr Admin: 06/08/18 17:09 Dose: 80 mls/hr Daptomycin 300 mg/ Syringe 6 mls @ 3 mls/min IV Q48H ZOIE; Protocol Stop: 06/18/18 17:59 Last Admin: 06/08/18 18:08 Dose: 3 mls/min Medical Decision Making Differential Diagnosis Differential includes acute coronary syndrome, myocardial infarction, CVA, TIA , anemia, infection, pneumonia, UTI, pyelonephritis, poor nutrition, dehydration , electrolyte disturbance,hypoglycemia. Medical Records Attestation: I reviewed the patient's medical records. Home Medications Current Medication List: was personally reviewed by me Laboratory Data Attestation: I reviewed the patient's lab results. Result diagrams: 06/10/18 05:46 06/10/18 05:46 Lab Results 06/08/18 06/08/18 06/08/18 Range/Units 11:15 11:15 11:15 WBC 8.95 (4.8-10.8) K/uL RBC 4.29 (4.2-5.4) M/uL Hgb 11.2 L (12.0-16.0) g/dL Hct 35.5 L (37-47) % MCV 82.8 (80-100) fL MCH 26.1 (25-34) pg MCHC 31.5 L (32-36) g/dL RDW Std Deviation 47.0 H (36.4-46.3) fL RDW Coeff of Jonathan 15.5 H (11.5-14.5) % Plt Count 415 H (130-400) K/uL MPV 8.5 (7.4-10.4) fL Immature Gran % (Auto) 0.4 % Neut % (Auto) 64.6 % Lymph % (Auto) 26.7 % [place] % (Auto) 7.2 % Eos % (Auto) 1.0 % Baso % (Auto) 0.1 % Immature Gran # (Auto) 0.04 H (0.00-0.02) K/uL Neut # (Auto) 5.78 (1.4-6.5) K/uL Lymph # (Auto) 2.39 (1.2-3.4) K/uL [place] # (Auto) 0.64 H (0.11-0.59) K/uL Eos # (Auto) 0.09 (0-0.5) K/uL Baso # (Auto) 0.01 (0-0.2) K/uL PT (9.0-12.0) Seconds INR (0.9-1.1) Sodium 132 L (136-145) mmol/L Potassium 5.0 (3.5-5.1) mmol/L Chloride 101 (98-107) mmol/L Carbon Dioxide 21 (21-32) mmol/L Anion Gap 10.0 (3-11) BUN 57 H (7-18) mg/dl Creatinine 1.86 H (0.6-1.2) mg/dl Est Cr Clr Drug Dosing Not Reportable Est GFR ( Amer) 28.7 Est GFR (Non-Af Amer) 24.8 BUN/Creatinine Ratio 30.6 H (10-20) Glucose 104 H (70-99) mg/dl Lactate 0.8 (0.4-2.0) mmol/L Calcium 9.7 (8.5-10.1) mg/dl Magnesium 3.3 H (1.8-2.4) mg/dl Total Bilirubin 0.3 (0.2-1) mg/dl AST 10 L (15-37) U/L ALT 8 L (12-78) U/L Alkaline Phosphatase 90 (45-117) U/L Total Protein 9.3 H (6.4-8.2) gm/dl Albumin 3.7 (3.4-5.0) gm/dl Globulin 5.6 H (2.5-4.0) gm/dl Albumin/Globulin Ratio 0.7 L (0.9-2) TSH 0.403 (0.300-4.500) uIu/ml Urine Color Urine Appearance (Clear) Urine pH (4.5-7.5) Ur Specific [place] (1.000-1.030) Urine Protein (Negative) Urine Glucose (UA) (Negative) Urine Ketones (Negative) Urine Blood (Negative) Urine Nitrite (Negative) Urine Bilirubin (Negative) Urine Urobilinogen (Negative) Ur Leukocyte Esterase (Negative) 06/08/18 06/08/18 06/09/18 Range/Units 11:15 13:20 11:15 WBC 9.57 (4.8-10.8) K/uL RBC 3.53 L (4.2-5.4) M/uL Hgb 9.3 L (12.0-16.0) g/dL Hct 29.5 L (37-47) % MCV 83.6 (80-100) fL MCH 26.3 (25-34) pg MCHC 31.5 L (32-36) g/dL RDW Std Deviation 46.9 H (36.4-46.3) fL RDW Coeff of Jonathan 15.5 H (11.5-14.5) % Plt Count 342 (130-400) K/uL MPV 8.3 (7.4-10.4) fL Immature Gran % (Auto) % Neut % (Auto) % Lymph % (Auto) % [place] % (Auto) % Eos % (Auto) % Baso % (Auto) % Immature Gran # (Auto) (0.00-0.02) K/uL Neut # (Auto) (1.4-6.5) K/uL Lymph # (Auto) (1.2-3.4) K/uL [place] # (Auto) (0.11-0.59) K/uL Eos # (Auto) (0-0.5) K/uL Baso # (Auto) (0-0.2) K/uL PT 10.3 (9.0-12.0) Seconds INR 1.0 (0.9-1.1) Sodium (136-145) mmol/L Potassium (3.5-5.1) mmol/L Chloride (98-107) mmol/L Carbon Dioxide (21-32) mmol/L Anion Gap (3-11) BUN (7-18) mg/dl Creatinine (0.6-1.2) mg/dl Est Cr Clr Drug Dosing Est GFR ( Amer) Est GFR (Non-Af Amer) BUN/Creatinine Ratio (10-20) Glucose (70-99) mg/dl Lactate (0.4-2.0) mmol/L Calcium (8.5-10.1) mg/dl Magnesium (1.8-2.4) mg/dl Total Bilirubin (0.2-1) mg/dl AST (15-37) U/L ALT (12-78) U/L Alkaline Phosphatase (45-117) U/L Total Protein (6.4-8.2) gm/dl Albumin (3.4-5.0) gm/dl Globulin (2.5-4.0) gm/dl Albumin/Globulin Ratio (0.9-2) TSH (0.300-4.500) uIu/ml Urine Color Yellow Urine Appearance Clear (Clear) Urine pH 5.0 (4.5-7.5) Ur Specific [place] 1.025 (1.000-1.030) Urine Protein Negative (Negative) Urine Glucose (UA) Negative (Negative) Urine Ketones 1+ H (Negative) Urine Blood Negative (Negative) Urine Nitrite Negative (Negative) Urine Bilirubin Negative (Negative) Urine Urobilinogen Negative (Negative) Ur Leukocyte Esterase Negative (Negative) 06/09/18 06/10/18 06/10/18 Range/Units 11:15 05:46 05:46 WBC 9.73 (4.8-10.8) K/uL RBC 3.84 L (4.2-5.4) M/uL Hgb 10.2 L (12.0-16.0) g/dL Hct 32.5 L (37-47) % MCV 84.6 (80-100) fL MCH 26.6 (25-34) pg MCHC 31.4 L (32-36) g/dL RDW Std Deviation 47.6 H (36.4-46.3) fL RDW Coeff of Jonathan 15.4 H (11.5-14.5) % Plt Count 390 (130-400) K/uL MPV 8.5 (7.4-10.4) fL Immature Gran % (Auto) % Neut % (Auto) % Lymph % (Auto) % [place] % (Auto) % Eos % (Auto) % Baso % (Auto) % Immature Gran # (Auto) (0.00-0.02) K/uL Neut # (Auto) (1.4-6.5) K/uL Lymph # (Auto) (1.2-3.4) K/uL [place] # (Auto) (0.11-0.59) K/uL Eos # (Auto) (0-0.5) K/uL Baso # (Auto) (0-0.2) K/uL PT (9.0-12.0) Seconds INR (0.9-1.1) Sodium 135 L 134 L (136-145) mmol/L Potassium 4.1 D 4.2 (3.5-5.1) mmol/L Chloride 107 107 (98-107) mmol/L Carbon Dioxide 18 L 22 (21-32) mmol/L Anion Gap 9.0 5.0 (3-11) BUN 33 H 20 H (7-18) mg/dl Creatinine 1.00 D 0.83 (0.6-1.2) mg/dl Est Cr Clr Drug Dosing 40.5 48.9 Est GFR ( Amer) 60.8 76.1 Est GFR (Non-Af Amer) 52.4 65.7 BUN/Creatinine Ratio 33.0 H 23.4 H (10-20) Glucose 127 H 97 (70-99) mg/dl Lactate (0.4-2.0) mmol/L Calcium 8.4 L 8.7 (8.5-10.1) mg/dl Magnesium 2.3 (1.8-2.4) mg/dl Total Bilirubin (0.2-1) mg/dl AST (15-37) U/L ALT (12-78) U/L Alkaline Phosphatase (45-117) U/L Total Protein (6.4-8.2) gm/dl Albumin (3.4-5.0) gm/dl Globulin (2.5-4.0) gm/dl Albumin/Globulin Ratio (0.9-2) TSH (0.300-4.500) uIu/ml Urine Color Urine Appearance (Clear) Urine pH (4.5-7.5) Ur Specific [place] (1.000-1.030) Urine Protein (Negative) Urine Glucose (UA) (Negative) Urine Ketones (Negative) Urine Blood (Negative) Urine Nitrite (Negative) Urine Bilirubin (Negative) Urine Urobilinogen (Negative) Ur Leukocyte Esterase (Negative) Imaging Data Radiologist's Impression: Radiology results as stated below per my review and the radiologist's interpretation: CT head/brain wo con CLINICAL HISTORY: Acute change in mental status COMPARISON STUDY: 03/03/2016 TECHNIQUE: Axial CT of the brain is performed from the vertex to the skull base. IV contrast was not administered for this examination. A dose lowering technique was utilized adhering to the principles of ALARA. CT DOSE: 537.48 mGy.cm FINDINGS: No intra or extra-axial mass lesions are visualized. There is no CT evidence of acute cortical infarction. There is no evidence of midline shift. There is no acute hemorrhage. No calvarial fractures are visualized. There are patchy white matter hypodensities likely on a small vessel basis. There is no evidence of pathologic ventricular dilatation. There is a sphenoid sinus air-fluid level, multiple ethmoid air cells are opacified. IMPRESSION: 1. No acute intracranial findings 2. Sphenoid sinus air-fluid level. Multiple opacified ethmoid air cells. Clinical correlation in regards to acute sinusitis is recommended. Electronically signed by: Dylon Burnett M.D. 06/08/2018 11:37 AM XR chest 1V portable CLINICAL HISTORY: weakness COMPARISON STUDY: Chest radiograph August 29, 2017. FINDINGS: Lung volumes are normal. There is no pneumothorax or pleural effusion. No consolidation or evidence for pulmonary edema. Cardiomediastinal silhouette is normal. There is apparent subluxation/dislocation of the right shoulder arthroplasty. IMPRESSION: 1. No acute cardiopulmonary findings. 2. Apparent subluxation/dislocation of the right shoulder arthroplasty. Electronically signed by: Tanner Jovel M.D. 06/08/2018 11:53 AM ECG Data Attestation: I personally reviewed and interpreted this ECG as follows: Indication: altered mental status Rate (beats per minute): 77 Rhythm: normal sinus Findings: + other (QTC 459) and + nonspecific-ST abn; no PAC, no PVC, no ST depression and no ST elevation Blood Pressure Blood Pressure Findings: Elevated blood pressure Blood Pressure Disposition: further management by hospitalist KELVIN Koch This pt was evaluated and appeared to be in no distress. She is altered and essentially non-verbal. VSS. IV access was obtained and lab work was drawn. IVF were initiated. PT was placed on the secured entrance monitor. Pt has dry MM, wound with dressing and packing in place over R shoudler/ axilla. No apparent cellulitis. CXR was obtained and reveals a dislocation of R shoulder hardware, assumed to be chronic. History is difficult. Head CT is negative for acute intracranial abnl, but significant for acute sinusitis. UA is negative. Pt has an acute elevated of creatinine, likely dehydration. IV unasyn was administered. Pt was d/w the hospitalist service for further management. Impression & Plan Dehydration, Altered mental status, Acute sinusitis, Dislocation of right shoulder joint Discharge Plan Visit Data *Final* Discharge Date/Time: 06/08/18 16:34 Chief Complaint: Altered Mental Status Stated Complaint: ams/weakness, [facility] ED Provider: Osiris Nicole Discharge Problem: Dehydration, Altered mental status, Acute sinusitis, Dislocation of right shoulder joint Patient Disposition: Admitted As Inpatient Discharge Instructions Interventions: ED Discharge Assessment Last Done: 06/08/18 16:34 The scribe's documentation has been prepared under my direction and personally reviewed by me in its entirety. I confirm that the note above accurately reflects all work, treatment, procedures, and medical decision making performed by me.
[2018-06-08] MEDS ORDERED: ACETAMINOPHEN 325 MG TAB PO PRN (16:54)
[2018-06-08] MEDS ORDERED: DAPTOMYCIN CONSULT ACTIVE PRN (17:06)
[2018-06-08] MEDS: SODIUM CHLORIDE 0.9% 1000ML 1,000 ML IV SCH (17:09)
[2018-06-08] MEDS: cefTRIAXone SODIUM 1,000 MG/50 ML BAG IV SCH (17:38)
--- NOTE | 2018-06-08 17:54 | XRay Report ---
RIGHT SHOULDER 3 VIEWS CLINICAL HISTORY: Arthroplasty subluxation. FINDINGS: 3 portable views of the right shoulder are compared to studies dated 08/29/2017 and 04/02/20 16. The skeletal structures are osteopenic. There is increased demineralization around the arthroplas ty as compared to prior studies. A right shoulder arthroplasty is in place. There is malalignment/sub luxation of the humeral component of the arthroplasty. No acute fracture is identified. There is call us formation with linear lucency seen in the humeral shaft around the arthroplasty. This represents a change from 08/29/2017 and likely represents subacute/healing fracture. The acromioclavicular joint i s preserved. Mild soft tissue edema is noted. The visualized right lung parenchyma appears clear. IMPRESSION: 1. 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 This is similar in appearance t o 08/29/2017, but represents a significant change in alignment from the 04/02/2016 postoperative exami [facility]. 2. There is increasing demineralization around the arthroplasty stem as compared to previous. No acut e fracture is identified. 3. Findings suggest subacute/healing fracture through the proximal humeral shaft around the arthropla sty. Electronically signed by: Filemon Sawyer M.D. 06/08/2018 5:53 PM
[2018-06-08] MEDS ORDERED: DAPTOmycin 300 MG in SYRINGE 0 ML IV SCH (18:00)
[2018-06-08] MEDS ORDERED: POLYETHYLENE (MIRALAX) 17 GM PACK PO PRN (19:06)
[2018-06-08 19:39] LABS: Prothrombin Time 10.3 Seconds (9.0-12.0)
[2018-06-08] MEDS: CARBIDOPA/LEVODOPA 25/100MG TAB PO SCH (20:30)
[2018-06-08] MEDS: DONEPEZIL HCL 5 MG TAB PO SCH (20:30)
[2018-06-08] MEDS: ENTACAPONE 200 MG TAB PO SCH (20:30)
[2018-06-08] MEDS: SENNA 8.6 MG TAB PO SCH (20:30)
[2018-06-08] MEDS: HEPARIN SOD 5,000 UNIT/0.5 ML VIAL SQ SCH (20:37)
[2018-06-09] MEDS: SODIUM CHLORIDE 0.9% 1000ML 1,000 ML IV SCH (05:25)
[2018-06-09] MEDS: HEPARIN SOD 5,000 UNIT/0.5 ML VIAL SQ SCH ×3 (05:26→22:25)
--- NOTE | 2018-06-09 06:31 | Orthopedic Consultation ---
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 The 2 treatment options would be conservative or surgical. If were to do surgical management it would require removal of the components and placement of a cement spacer. I would likely just leave the cement spacer in for the rest of her life. Nonoperative treatment would be IV and then oral antibiotics. She would be on oral antibiotics for life. I will need to discuss with the medical team as well as her family which treatment option we feel would be most appropriate. We will continue to follow closely. Present on Admission?: Yes History of Present Illness Attending Physician: Jono Mora MD History of Present Illness Marta is an 83-year-old female with a long history of right shoulder problems. She fell hard onto her right shoulder in February 2016 and sustained a displaced and dislocated right proximal humerus fracture. After discussions with her family we elected to proceed with open reduction internal fixation of her right shoulder. 2 weeks after the procedure she fell at the retirement and the hardware cut out through the bone. She was in a lot of pain. After discussions with her family again she elected to proceed with a conversion to a reverse shoulder arthroplasty. Unfortunately before the scheduled procedure she fell hard onto her hip and sustained a hip fracture. She underwent a hip replacement by Dr. Davis. 2 days later I did a reverse shoulder arthroplasty. I followed her for over a year afterwards with x-rays and the x-rays always look good. She then returned to my office and August 2017 with some increased pain in her right shoulder. X-rays showed loosening of the humeral component. I was suspicious for infection and had discussions with the family. Given her mental and physical status we elected not to proceed with further workup or revision surgery at that time. Unfortunately she is now having more drainage from her right shoulder. It is unclear from her history how long the drainage has been there and I will need to talk with her family or her current nursing providers about that. X-rays upon admission do show subluxation of the right shoulder with loosening of the humeral component. She has multiple chronic medical issues. Orthopedics was consulted to evaluate and treat. Allergies Allergy/AdvReac Type Severity Reaction Status Date / Time morphine Allergy Mild RASH Verified 06/08/18 11:56 Home Medications Home Medications Medication Instructions Recorded Confirmed Type acetaminophen 325 mg tablet 650 mg PO Q6H PRN tab 01/12/18 06/08/18 History acetaminophen 500 mg capsule 1,000 mg PO .q 12 cap 01/12/18 06/08/18 History calcium carbonate 600 mg-vitamin 600 tab PO DAILY tab 01/12/18 06/08/18 History D3 1,000 unit-vitamin K2 90 mcg tab carbidopa 25 mg-levodopa 100 1 tab PO TID 01/12/18 06/08/18 History mg-entacapone 200 mg tablet diclofenac sodium 75 mg 75 mg PO BID 01/12/18 06/08/18 History tablet,delayed release donepezil 5 mg tablet 5 mg PO HS tab 01/12/18 06/08/18 History polyethylene glycol 3350 17 17 gm PO QAM gm 01/12/18 06/08/18 History gram/dose oral powder ranitidine 150 mg tablet 150 mg PO HS tab 01/12/18 06/08/18 History ferrous sulfate 325 mg PO QAM 06/08/18 06/08/18 History sennosides [senna] 8.6 mg PO HS 06/08/18 06/08/18 History sulfamethoxazole-trimethoprim 1 tab PO BID 06/08/18 06/08/18 History tramadol 25 mg PO Q6H PRN 06/08/18 06/08/18 History Patient History Medical History Chronic anemia (Chronic) Parkinson disease (Chronic) Dementia (Chronic) Scoliosis (Chronic) Dementia (Chronic) Fall (Chronic) Femoral neck fracture (Chronic) Fracture of right humerus (Chronic) Parkinsons (Chronic) S/p left hip fracture (Chronic) Scoliosis (Chronic) Surgical History History of left hip replacement (Resolved) History of arthroplasty of right shoulder (Resolved) 2016 - Dr Morris Social History Current Living Situation: [facility] Current Living Situation Comment: [facility] memory care unit Feels Safe at Home: Yes Safety Concerns: Feels Safe At This Time Smoking Status: Never smoker Do You Dip or Chew Tobacco: No Hx Alcohol Use: No Hx Substance Use: No Communication Ability: Impaired Communication Ability Comment: mumbling speech patteren, able to make needs known Broadcast Designer Required: No Physical Exam 2 Vital Signs (Past 24 Hours): Last Vital Signs Temp 36.5 C 06/09/18 03:19 Pulse 74 06/09/18 03:19 Resp 18 06/09/18 03:19 BP 110/70 06/09/18 03:19 Pulse Ox 96 06/09/18 03:19 Musculoskeletal: On physical examination of her right shoulder, there is an obvious deformity. I did not do any range of motion testing at bedside. She does have some purulent discharge coming from the incision area. This is covered with a gauze dressing. There is a little bit of redness around her shoulder but is not much. She is unable to cooperate for a neurologic exam. Results & Data Laboratory Results H & H 06/08/18 Range/Units 11:15 Hgb 11.2 L (12.0-16.0) g/dL Hct 35.5 L (37-47) % Coagulation 06/08/18 Range/Units 11:15 INR 1.0 (0.9-1.1) Diagnostic Findings X-rays of the right shoulder show a reverse shoulder prosthesis with obvious loosening of the humeral stem and anterior subluxation.
--- NOTE | 2018-06-09 09:21 | Hospitalist Progress Note ---
Date of Service June 09, 2018 Assessment & Plan (1) Metabolic encephalopathy: (2) Altered mental status: (3) Speech abnormality: Pt with hx Parkinson's, dementia. Admitted with increased garbled speech, lethargy, global weakness and CHUN CT HEAD: No acute intracranial findings. Sphenoid sinus air-fluid level. Multiple opacified ethmoid air cells. CXR: No acute cardiopulmonary findings. UA unremarkable. No leukocytosis Probable metabolic encephalopathy secondary to R shoulder infection Possible sinus infection -Today improved speech - still with some slurred/garbled speech seems like close to pt's baseline -MRI to r/o stroke/lesion pending -neuro checks Q4H -aspiration precautions -speech eval -PT/OT eval -if no improvement consider neuro consult (4) MIGUELANGEL (acute kidney injury): Admission labs with BUN: 57, Cr: 1.8, GFR: 24, BUN/Cr ratio: 30. Pt appeared dehydrated Baseline Cr 0.9 with baseline GFR 58 to >60 Pt had been on bactrim and diclofenac -IVF -Bactrim discontinued and diclofenac held -06/09/18 - pt refused am labs, will try again this afternoon -avoid nephrotoxic agents when possible -monitor renal functions (5) Wound of right shoulder: Reported chronic wound to R shoulder with noted foul smelling purulent discharge noted on 05/26/18 and pt was started on Bactrim. Outpatient wound culture: staph aureus which was resistant to PCN G. Pt afebrile. 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 Hx R humeral fracture with ORIF in 2015 then with failure of internal fixation and pt had R shoulder replacement in 03/2016. 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 This is similar in appearance to 08/29/2017. Findings suggest subacute/healing fracture through the proximal humeral shaft around the arthroplasty. -continue tylenol prn pain -for now will hold tramadol with pt's altered symptoms -Ortho consult, appreciate recommendations (7) Chronic anemia: Hx Chronic anemia Hgb: 11.2. Baseline 9-10. -continue iron supplement -monitor H&H (8) Parkinson disease: (9) Dementia: -continue home meds DVT Prophylaxis -Heparin SQ DNR as per [facility] records Follows with Dr Bailon for routine care Pt was seen with Dr Mccullough. See addendum Supervising Physician Co-Signing Physician Notes Attending addendum: She is an 83-year-old female with significant past medical history of dementia, Parkinson's disease, chronic wound on the right shoulder and almost bedbound status was admitted with change in mental status, weakness and possible garbled speech. The patient was seen and examined in medical floor She complains to have nonspecific symptoms of weakness, pain, headache without any apparent distress in bed On examination Lying in bed with minimal discomfort Vitals noted as above Chest-decreased breath sounds otherwise clear to auscultate Heart-S1-S2 regular Abdomen-mildly distended, soft, bowel sounds present Extremities-trace edema bilaterally Has right shoulder subluxation with draining wound anteriorly Labs and imaging studies were noted Has AK I likely secondary to dehydration MRI has been pending to rule out possible stroke Ortho evaluation has been Agree with assessment and plan as outlined above by Lori Mora Subjective F/U altered speech, MIGUELANGEL Pt seen in examined. Sitting up in bed. Pt with hx Parkinson's, dementia. Today with less garbled speech, and a little more clear understanding of speech today. Spoke with staff shirley Otero who report pt at baseline with slurred speech and soft spoken and often uses wrong words for things but most of conversation is understandable. Pt reports recognizes this provider from yesterday, alert to person, still thinks year is 1986 or 1988, knows it is winter, reports remembers being in this facility in past but unsure of name. Staff at [facility] also report that pt has intermittent visual hallucinations of pets/animals or family members and pt has pending referral to geriatric psych. No signs of hallucinations during exam this morning. Denies any further CHUN today. Denies N/V, or abdominal pain. Denies R shoulder pain currently, has chronic limited ROM and wound. Denies dizziness, CP, SOB, paresthesias. Physical Exam 2 Vital Signs (Past 24 Hours): Last Vital Signs Temp 36.4 C L 06/09/18 07:15 Pulse 66 06/09/18 07:15 Resp 16 06/09/18 07:15 BP 136/73 06/09/18 07:15 Pulse Ox 96 06/09/18 07:15 Physical Exam: General: no acute distress, WDWN Head: normocephalic, atraumatic Eyes: PERRL, EOM's intact, conjunctiva non-injected, anicteric ENT: normal inspection external ears, nose, no maxillary/frontal sinus tenderness to percussion, mucous membranes mildly dry Neck: supple, trachea midline, non-tender Lungs: clear, no respiratory distress, no wheezing/rhonchi/rales CV: RRR, no murmur, no pretibial edema Abd: normal BS, soft, no tenderness to palpation Ext: no cyanosis, no calf tenderness; R shoulder: +wound with purulent drainage anterior shoulder with some surrounding erythema, very limited active ROM R shoulder distal pulses palpable , brisk capillary refill diffuse extremity weakness, able to move LUE, and straight leg raise BLE Neuro: A&O to person, unsure of place or time. +flat faces, less garbled/ slurred speech than yesterday, no facial drooping. Skin: warm, dry, R shoulder as above in extremities Results & Data Laboratory Results Short CBC 06/09/18 Range/Units 11:15 WBC 9.57 (4.8-10.8) K/uL Hgb 9.3 L (12.0-16.0) g/dL Hct 29.5 L (37-47) % Plt Count 342 (130-400) K/uL BMP 06/09/18 11:15 Sodium 135 L Potassium 4.1 D Chloride 107 Carbon Dioxide 18 L BUN 33 H Creatinine 1.00 D Glucose 127 H Calcium 8.4 L Urine 06/08/18 Range/Units 13:20 Urine Color Yellow Urine Appearance Clear (Clear) Urine pH 5.0 (4.5-7.5) Ur Specific [place] 1.025 (1.000-1.030) Urine Protein Negative (Negative) Urine Glucose (UA) Negative (Negative) Medications Administered Current Inpatient Medications Acetaminophen (Tylenol) 650 mg PO Q4H PRN PRN Reason: Pain or Fever Stop: 07/08/18 16:53 Last Admin: 06/09/18 10:43 Dose: 650 mg Carbidopa/Levodopa (Sinemet 25/100 Mg) 1 tab PO TID ZOIE Stop: 07/08/18 20:59 Last Admin: 06/09/18 09:28 Dose: 1 tab Donepezil HCl (Aricept) 5 mg PO HS [facility] Stop: 07/08/18 20:59 Last Admin: 06/08/18 20:30 Dose: 5 mg Entacapone (Comtan) 200 mg PO TID [facility] Stop: 07/08/18 20:59 Last Admin: 06/09/18 09:28 Dose: 200 mg Ferrous Sulfate (Feosol) 325 mg PO QAM [facility] Stop: 07/09/18 08:59 Last Admin: 06/09/18 09:27 Dose: 325 mg Heparin Sodium (Porcine) (Heparin Sodium (Porcine)) 5,000 units SQ Q8 [facility]OIE Stop: 07/08/18 21:59 Last Admin: 06/09/18 05:26 Dose: 5,000 units Ceftriaxone Sodium (Rocephin) 1,000 mg in 50 mls @ 100 mls/hr IV Q24H [facility] Stop: 06/18/18 16:59 Last Infusion: 06/08/18 18:11 Dose: Infused Sodium Chloride (Nss 1000ml) 1,000 mls @ 80 mls/hr IV .[id number] [facility] Stop: 06/09/18 17:53 Last Admin: 06/09/18 05:25 Dose: 80 mls/hr Daptomycin 300 mg/ Syringe 6 mls @ 3 mls/min IV Q48H [facility]; Protocol Stop: 06/18/18 17:59 Last Admin: 06/08/18 18:08 Dose: 3 mls/min Miscellaneous Information (Consult) 1 ea N/A UD PRN PRN Reason: Consult Stop: 07/08/18 17:05 Polyethylene Glycol (Miralax Powder Packet) 17 gm PO DAILY PRN PRN Reason: Constipation Stop: 07/08/18 19:05 Ranitidine HCl (Zantac) 150 mg PO HS [facility] Stop: 07/08/18 20:59 Last Admin: 06/08/18 20:30 Dose: 150 mg Sennosides (Senokot) 8.6 mg PO HS [facility] Stop: 07/08/18 20:59 Last Admin: 06/08/18 20:30 Dose: 8.6 mg _ (1) Altered mental status Altered mental status type: unspecified Coma depth: Coma timing: Qualified Code(s): R41.82 - Altered mental status, unspecified
[2018-06-09] MEDS: FERROUS SULFATE 325 MG TAB PO SCH (09:27)
[2018-06-09] MEDS: CARBIDOPA/LEVODOPA 25/100MG TAB PO SCH ×3 (09:28→20:23)
[2018-06-09] MEDS: ENTACAPONE 200 MG TAB PO SCH ×3 (09:28→20:24)
[2018-06-09 11:37] LABS: Hematocrit (blood only) 29.5 % (37-47); Hemoglobin 9.3 g/dL (12.0-16.0); Mean Corpuscular Hgb Conc 31.5 g/dL (32-36); Mean Corpuscular Volume 83.6 fL (80-100); Mean Platelet Volume 8.3 fL (7.4-10.4); Platelet Count 342 K/uL (130-400); RDW Coefficient of Variation 15.5 % (11.5-14.5); RDW Standard Deviation 46.9 fL (36.4-46.3); Red Blood Count 3.53 M/uL (4.2-5.4); White Blood Count 9.57 K/uL (4.8-10.8)
[2018-06-09 11:56] LABS: Calcium 8.4 mg/dl (8.5-10.1); Creatinine Clr Calc Pharmacy 40.5 ml/min; Est GFR (African American) 60.8; Est GFR (Non-African American) 52.4; Potassium 4.1 mmol/L (3.5-5.1)
[2018-06-09] MEDS: cefTRIAXone SODIUM 1,000 MG/50 ML BAG IV SCH (17:55)
[2018-06-09] MEDS: DONEPEZIL HCL 5 MG TAB PO SCH (20:24)
[2018-06-09] MEDS: SENNA 8.6 MG TAB PO SCH (20:24)
[2018-06-10] MEDS: HEPARIN SOD 5,000 UNIT/0.5 ML VIAL SQ SCH ×3 (05:55→20:52)
[2018-06-10 06:26] LABS: Hematocrit (blood only) 32.5 % (37-47); Hemoglobin 10.2 g/dL (12.0-16.0); Mean Corpuscular Hgb Conc 31.4 g/dL (32-36); Mean Corpuscular Volume 84.6 fL (80-100); Mean Platelet Volume 8.5 fL (7.4-10.4); Platelet Count 390 K/uL (130-400); RDW Coefficient of Variation 15.4 % (11.5-14.5); RDW Standard Deviation 47.6 fL (36.4-46.3); Red Blood Count 3.84 M/uL (4.2-5.4); White Blood Count 9.73 K/uL (4.8-10.8)
[2018-06-10 06:59] LABS: BUN Creatinine Ratio 23.4 (10-20); Calcium 8.7 mg/dl (8.5-10.1); Creatinine Clr Calc Pharmacy 48.9 ml/min; Est GFR (African American) 76.1; Est GFR (Non-African American) 65.7; Magnesium 2.3 mg/dl (1.8-2.4); Potassium 4.2 mmol/L (3.5-5.1)
[2018-06-10] MEDS: FERROUS SULFATE 325 MG TAB PO SCH (08:19)
[2018-06-10] MEDS: CARBIDOPA/LEVODOPA 25/100MG TAB PO SCH ×3 (08:19→20:51)
[2018-06-10] MEDS: ENTACAPONE 200 MG TAB PO SCH ×3 (08:19→20:51)
--- NOTE | 2018-06-10 09:28 | Orthopedic Progress Note ---
Date of Service June 10, 2018 Assessment & Plan (1) Prosthetic shoulder infection: Unfortunately now he has an infection to the right shoulder prosthesis. I think is been infected for a while but is just draining more recently. I am not sure how long it has been draining I was unable to get a clear answer from the [facility] notes. The only surgical treatment option would be to open the shoulder up washed out and remove all the components. I would unlikely do any surgeries after that I would just leave the components out. We would likely be able to eradicate the infection. My concern with that as we could cause increased pain or even decreased function from the procedure. There is also the risk of anesthesia and the procedure itself. At this time she is DNR. My recommendation would be to continue antibiotics and wound care. We will continue to try to get in contact with family. And I will continue to follow her closely. Present on Admission?: Yes Alberto Lozano was seen and examined at bedside this morning. I had long discussions with her nurse as well. I was unable to reach her family yesterday with different treatment options. She seems to be feeling okay today. Her pain is well controlled. She was eating breakfast when I entered the room. Physical Exam 2 Vital Signs (Past 24 Hours): Last Vital Signs Temp 36.8 C 06/10/18 07:50 Pulse 86 06/10/18 07:50 Resp 16 06/10/18 07:50 BP 153/77 H 06/10/18 07:50 Pulse Ox 95 06/10/18 07:50 Musculoskeletal: On examination of the right shoulder, there is purulent discharge coming from the previous shoulder incision. There is a dressing covering it but it continues to drain. She has limited range of motion of the shoulder. She is able to move her elbow and use her hand to feed herself. She is not much pain.
--- NOTE | 2018-06-10 12:33 | Hospitalist Progress Note ---
Date of Service June 10, 2018 Assessment & Plan (1) Metabolic encephalopathy: Likely contributed by infection and dehydration Seems to be at her baseline now Present on Admission?: Yes (2) Altered mental status: Pt with hx Parkinson's, dementia. Reported pt with increased garbled speech today with lethargy, global weakness and CHUN In ER no leukocytosis. UA unremarkable. CT HEAD: No acute intracranial findings. Sphenoid sinus air-fluid level. Multiple opacified ethmoid air cells. CXR: No acute cardiopulmonary findings. May be secondary to infection -MRI to r/o stroke/lesion-not yet done -neuro checks Q4H -Speech abnormality seems to be chronic and no deterioration -Does not have any other neurological symptom to suggest any stroke (3) Speech abnormality: Pt with hx Parkinson's, dementia. Admitted with increased garbled speech, lethargy, global weakness and CHUN CT HEAD: No acute intracranial findings. Sphenoid sinus air-fluid level. Multiple opacified ethmoid air cells. CXR: No acute cardiopulmonary findings. UA unremarkable. No leukocytosis Probable metabolic encephalopathy secondary to R shoulder infection Possible sinus infection -Today improved speech - still with some slurred/garbled speech seems like close to pt's baseline -MRI to r/o stroke/lesion pending -PT/OT eval -Doubt any TIA and/or stroke -Heart symptomatology seems to be chronic in nature (4) MIGUELANGEL (acute kidney injury): Admission labs with BUN: 57, Cr: 1.8, GFR: 24, BUN/Cr ratio: 30. Pt appeared dehydrated Baseline Cr 0.9 with baseline GFR 58 to >60 Pt had been on bactrim and diclofenac -IVF -Bactrim discontinued and diclofenac held -06/09/18 - pt refused am labs, will try again this afternoon -avoid nephrotoxic agents when possible -Renal function is improved and normalized (5) Wound of right shoulder: Reported chronic wound to R shoulder with noted foul smelling purulent discharge noted on 05/26/18 and pt was started on Bactrim. Outpatient wound culture: staph aureus which was resistant to PCN G. Pt afebrile. 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 Hx R humeral fracture with ORIF in 2015 then with failure of internal fixation and pt had R shoulder replacement in 03/2016. 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 This is similar in appearance to 08/29/2017. Findings suggest subacute/healing fracture through the proximal humeral shaft around the arthroplasty. -continue tylenol prn pain -for now will hold tramadol with pt's altered symptoms -Ortho consult, appreciate recommendations -Likely going to have conservative management -Has been trying to talk to the family members especially the daughter to update about her medical condition but not been able to -Discussed with the patient in detail repeatedly and the patient does not want any surgery (7) Chronic anemia: Hx Chronic anemia Hgb: 11.2. Baseline 9-10. -continue iron supplement -monitor H&H >10 (8) Parkinson disease: (9) Dementia: -continue home meds DVT Prophylaxis -Heparin SQ DNR as per [facility] records Follows with Dr Bailon for routine care Subjective 06/09 F/U altered speech, MIGUELANGEL Pt seen in examined. Sitting up in bed. Pt with hx Parkinson's, dementia. Today with less garbled speech, and a little more clear understanding of speech today. Spoke with staff shirley Otero who report pt at baseline with slurred speech and soft spoken and often uses wrong words for things but most of conversation is understandable. Pt reports recognizes this provider from yesterday, alert to person, still thinks year is 1986 or 1988, knows it is winter, reports remembers being in this facility in past but unsure of name. Staff at [facility] also report that pt has intermittent visual hallucinations of pets/animals or family members and pt has pending referral to geriatric psych. No signs of hallucinations during exam this morning. Denies any further CHUN today. Denies N/V, or abdominal pain. Denies R shoulder pain currently, has chronic limited ROM and wound. Denies dizziness, CP, SOB, paresthesias. 06/10 She is an 83-year-old female with significant past medical history of dementia, Parkinson's disease, chronic wound on the right shoulder and almost bedbound status was admitted with change in mental status, weakness and possible garbled speech. The patient was seen and examined in medical floor Remains stable today and communicating reasonably well Denies any significant symptoms Discussed the management of her right shoulder dislocation and infection in detail with She does not want to have any surgery Try to call her daughter multiple times and left a message for her to reply Physical Exam 2 Vital Signs (Past 24 Hours): Last Vital Signs Temp 36.8 C 06/10/18 11:43 Pulse 59 L 06/10/18 11:43 Resp 18 06/10/18 11:43 BP 122/82 06/10/18 11:43 Pulse Ox 97 06/10/18 11:43 Physical Exam: Lying in bed comfortably Constitutional: WD/WN, vitals as above Eyes: PERRL, conjunctivae normal, anicteric sclerae ENMT: external ear and nose normal, oropharynx normal Respiratory: normal respiratory effort; no respiratory distress Auscultation: + diminished lung sounds; no crackles and no wheezes Cardiovascular: Rate/Rhythm: regular rate and regular rhythm Heart Sounds: normal S1 and normal S2 Gastrointestinal (Abdomen): Inspection/Auscultation: abdomen normal to inspection and normal bowel sounds Musculoskeletal: Shoulder: + shoulder abnormal to inspection (Right shoulder dislocation with a discharging sinus/wound anteriorly) Neurologic: moves all extremities (Less so with right upper extremity), awake and + confused (Pleasantly confused) Speech / Cognition: + expressive aphasia Results & Data Laboratory Results Short CBC 06/10/18 Range/Units 05:46 WBC 9.73 (4.8-10.8) K/uL Hgb 10.2 L (12.0-16.0) g/dL Hct 32.5 L (37-47) % Plt Count 390 (130-400) K/uL BMP 06/10/18 05:46 Sodium 134 L Potassium 4.2 Chloride 107 Carbon Dioxide 22 BUN 20 H Creatinine 0.83 Glucose 97 Calcium 8.7 Medications Administered Current Inpatient Medications Acetaminophen (Tylenol) 650 mg PO Q4H PRN PRN Reason: Pain or Fever Stop: 07/08/18 16:53 Last Admin: 06/09/18 10:43 Dose: 650 mg Carbidopa/Levodopa (Sinemet 25/100 Mg) 1 tab PO TID [facility] Stop: 07/08/18 20:59 Last Admin: 06/10/18 08:19 Dose: 1 tab Donepezil HCl (Aricept) 5 mg PO HS [facility] Stop: 07/08/18 20:59 Last Admin: 06/09/18 20:24 Dose: 5 mg Entacapone (Comtan) 200 mg PO TID [facility] Stop: 07/08/18 20:59 Last Admin: 06/10/18 08:19 Dose: 200 mg Ferrous Sulfate (Feosol) 325 mg PO QAM [facility] Stop: 07/09/18 08:59 Last Admin: 06/10/18 08:19 Dose: 325 mg Heparin Sodium (Porcine) (Heparin Sodium (Porcine)) 5,000 units SQ Q8 [facility] Stop: 07/08/18 21:59 Last Admin: 06/10/18 05:55 Dose: 5,000 units Ceftriaxone Sodium (Rocephin) 1,000 mg in 50 mls @ 100 mls/hr IV Q24H [facility] Stop: 06/18/18 16:59 Last Infusion: 06/09/18 18:38 Dose: Infused Daptomycin 225 mg/ Syringe 4.5 mls @ 3 mls/min IV Q48H [facility]; Protocol Stop: 06/18/18 17:59 Miscellaneous Information (Consult) 1 ea N/A UD PRN PRN Reason: Consult Stop: 07/08/18 17:05 Polyethylene Glycol (Miralax Powder Packet) 17 gm PO DAILY PRN PRN Reason: Constipation Stop: 07/08/18 19:05 Ranitidine HCl (Zantac) 150 mg PO HS [facility] Stop: 07/08/18 20:59 Last Admin: 06/09/18 20:24 Dose: 150 mg Sennosides (Senokot) 8.6 mg PO HS [facility] Stop: 07/08/18 20:59 Last Admin: 06/09/18 20:24 Dose: 8.6 mg _ (1) Altered mental status Altered mental status type: unspecified Coma depth: Coma timing: Qualified Code(s): R41.82 - Altered mental status, unspecified
[2018-06-10] MEDS: cefTRIAXone SODIUM 1,000 MG/50 ML BAG IV SCH (17:47)
[2018-06-10] MEDS ORDERED: DAPTOmycin 225 MG in SYRINGE 0 ML IV SCH (18:00)
[2018-06-10] MEDS: DONEPEZIL HCL 5 MG TAB PO SCH (20:51)
[2018-06-10] MEDS: SENNA 8.6 MG TAB PO SCH (20:51)
[2018-06-11] MEDS: HEPARIN SOD 5,000 UNIT/0.5 ML VIAL SQ SCH ×3 (06:13→20:59)
[2018-06-11] MEDS: FERROUS SULFATE 325 MG TAB PO SCH ×2 (08:31→08:47)
[2018-06-11] MEDS: ENTACAPONE 200 MG TAB PO SCH ×4 (08:31→20:59)
[2018-06-11] MEDS: CARBIDOPA/LEVODOPA 25/100MG TAB PO SCH ×4 (08:31→20:59)
--- NOTE | 2018-06-11 09:18 | Orthopedic Progress Note ---
Date of Service June 11, 2018 Assessment & Plan (1) Prosthetic shoulder infection: Unfortunately her condition is not improving at this point. She remains very lethargic and demented. She has been afebrile her vital signs are stable. She has not had any elevated white count. I do not necessarily think that the infection is causing her symptoms. If we were to do anything surgically I would have to remove all the components. Right now she is not having much pain in the shoulder and I do not want to create a painful shoulder by doing a surgical procedure. At this point I want to treat her shoulder with conservative measures including chronic antibiotic therapy and wound management. If her status changes and the family wishes to proceed with surgical intervention then we can reopen the discussion. I can be reached on my cell phone at any time [phone] Present on Admission?: Yes Alberto Lozano was seen and examined at bedside this morning. Unfortunately her condition has deteriorated some. She was more lethargic and unresponsive yesterday. The nursing staff says her dementia had worsened. She is having trouble feeding herself. It was difficult to have her become responsive when I examined her today. Physical Exam 2 Vital Signs (Past 24 Hours): Last Vital Signs Temp 36.6 C 06/11/18 07:46 Pulse 72 06/11/18 07:46 Resp 16 06/11/18 07:46 BP 115/73 06/11/18 07:46 Pulse Ox 94 06/11/18 07:46 Musculoskeletal: On examination of the right shoulder, there is a dressing in place. She still some draining from the incision site. I am unable to do any neurologic exams with her. I am unable to do any range of motion testing.
--- NOTE | 2018-06-11 09:43 | CT Scan Report ---
CT head/brain wo con CLINICAL HISTORY: 83 years-old Female presenting with MRI clearance. TECHNIQUE: Multidetector CT imaging of the head was performed without the use of intravenous contrast . IV contrast: None. A dose lowering technique was used consistent with the principles of ALARA (as l ow as reasonably achievable). COMPARISON: 06/08/2018. CT DOSE (mGy.cm): The estimated cumulative dose is 537.48 mGy.cm. FINDINGS: New Order Clerk topogram: Unremarkable. No metallic foreign body. No metallic foreign body identified in the [id number]. Ventricles and sulci normal in size. No hemorrhage. Periventricular and subcortical white matter hypo attenuation, nonspecific but likely indicative of chronic small vessel ischemic change. No acute terr itorial infarct. No mass effect or midline shift. No extra-axial fluid collection. Mild mucosal thick ening in the maxillary sinuses with air-fluid level noted in the sphenoid sinuses. Calvarium intact. Intracranial atherosclerosis noted. IMPRESSION: 1. No foreign body to occlude MRI examination. 2. Chronic small vessel ischemic change. No acute intracranial abnormality. 3. Findings may suggest acute sinusitis. Electronically signed by: Kings Ivey M.D. 06/11/2018 9:42 AM
--- NOTE | 2018-06-11 09:52 | CT Scan Report ---
CT abd pelvis wo con CLINICAL HISTORY: 83 years-old Female presenting with MRI clearance. TECHNIQUE: Multidetector CT of the abdomen and pelvis was performed without the use of intravenous co ntrast. IV contrast: None. A dose lowering technique was used consistent with the principles of ALARA (as low as reasonably achievable). COMPARISON: 04/01/2010. CT DOSE (mGy.cm): The estimated cumulative dose is 913.73 mGy.cm. FINDINGS: Sterilization Tech topogram: Total left hip arthroplasty. Levoscoliosis of the lumbar spine. Lung bases: Minimal dependent changes likely atelectasis. Top normal cardiac size. Coronary artery an d aortic valve calcification. No pericardial or pleural effusion. Liver: Normal morphology. Normal density. Well-defined hypodensities near the hepatic dome possibly h epatic cysts or hemangiomas. Biliary: No gross biliary ductal dilatation allowing for noncontrast technique. The gallbladder is di stended likely on a physiologic basis. Noncontrast technique limits evaluation. Allowing for this, no gross evidence of gallbladder wall thickening. Allowing for motion artifact, no pericholecystic flui d or inflammatory change. Pancreas: Mild parenchymal atrophy. Spleen: Normal noncontrast appearance. Adrenal glands: Normal noncontrast appearance. Kidneys and ureters: Normal noncontrast appearance. No nephrolithiasis. No hydronephrosis. Normal ure ters. Bladder: Circumferential bladder wall trabeculation and several small bladder diverticula. Pelvic organs: Calcified uterine fibroids noted. Ovaries not well visualized. Bowel: Rectum markedly distended with stool. No rectal wall thickening. Diverticulosis of the sigmoid colon. Trace pericolonic inflammatory change along a diverticula in the proximal sigmoid colon (seri es 3 image 341). Fluid in the colon suggests a diarrheal state. No bowel obstruction. Prominent duode nal diverticulum. Trace hiatal hernia. Peritoneal cavity: No free fluid or intraperitoneal gas. Lymph nodes: No gross lymphadenopathy allowing for noncontrast technique. Vasculature: Atherosclerosis of the normal caliber abdominal aorta. Abdominal wall: Normal. Musculoskeletal: Degenerative changes of the spine. Total left hip arthroplasty. Mild degenerative ch anges of the right hip. Osteopenia. Scoliosis of lumbar spine. IMPRESSION: 1. No retained foreign body to preclude MRI examination. The left hip arthroplasty is not be a contr aindication to MR. 2. Findings consistent with mild acute uncomplicated diverticulitis of the proximal sigmoid colon. N o abscess or extraluminal gas. 3. Distended rectum. 4. Fluid in the colon may suggest a diarrheal state. 5. Circumferential bladder trabeculation with multiple bladder diverticula. Correlate clinically for neurogenic bladder or bladder dysfunction. No convincing findings to suggest acute cystitis. Electronically signed by: Kings Ivey M.D. 06/11/2018 9:51 AM
--- NOTE | 2018-06-11 11:29 | Magnetic Resonance Report ---
MR brain wo con CLINICAL HISTORY: 83 years-old Female presenting with altered speech. TECHNIQUE: Multisequence, multiplanar MR imaging of the brain was performed without the use of intrav enous contrast. IV contrast: None. COMPARISON: Noncontrast CT head from 06/11/2018 at 9:52 AM. FINDINGS: Localizer images: Unremarkable. Proportional ventricular and sulcal prominence, likely age-related parenchymal volume loss. Periventr icular and subcortical white matter T2/FLAIR hyperintensity, nonspecific but likely indicative of chr onic small vessel ischemic change. Postcontrast imaging was not performed. No mass effect or midline shift. No restricted diffusion to suggest acute ischemia. No hemorrhage. No extra-axial fluid collection. T2 skull base flow voids preserved. Bone marrow signal intensity within the calvarium within normal l imits. Mucosal thickening in paranasal sinuses. IMPRESSION: 1. Chronic small vessel ischemic change. No acute intracranial abnormality. Electronically signed by: Kings Ivey M.D. 06/11/2018 11:28 AM
--- NOTE | 2018-06-11 11:31 | Hospitalist Progress Note ---
Date of Service June 11, 2018 Assessment & Plan (1) Metabolic encephalopathy: Likely contributed by infection and dehydration Seems to be at her baseline now Seems to be more drowsy today without any apparent distress (2) Altered mental status: Pt with hx Parkinson's, dementia. Reported pt with increased garbled speech today with lethargy, global weakness and CHUN In ER no leukocytosis. UA unremarkable. CT HEAD: No acute intracranial findings. Sphenoid sinus air-fluid level. Multiple opacified ethmoid air cells. CXR: No acute cardiopulmonary findings. May be secondary to infection -MRI to r/o stroke/lesion-not yet done -neuro checks Q4H -Speech abnormality seems to be chronic and no deterioration -Does not have any other neurological symptom to suggest any stroke -As above (3) Speech abnormality: Pt with hx Parkinson's, dementia. Admitted with increased garbled speech, lethargy, global weakness and CHUN CT HEAD: No acute intracranial findings. Sphenoid sinus air-fluid level. Multiple opacified ethmoid air cells. CXR: No acute cardiopulmonary findings. UA unremarkable. No leukocytosis Probable metabolic encephalopathy secondary to R shoulder infection -Repeat CT of the abdomen did not show any significant abnormality but he did show bilateral sinusitis Possible sinus infection Has been on antibiotics that should cover sinusitis -Today improved speech - still with some slurred/garbled speech seems like close to pt's baseline -MRI to r/o stroke/lesion pending -PT/OT eval -Doubt any TIA and/or stroke -Heart symptomatology seems to be chronic in nature (4) MIGUELANGEL (acute kidney injury): Admission labs with BUN: 57, Cr: 1.8, GFR: 24, BUN/Cr ratio: 30. Pt appeared dehydrated Baseline Cr 0.9 with baseline GFR 58 to >60 Pt had been on bactrim and diclofenac -IVF -Bactrim discontinued and diclofenac held -06/09/18 - pt refused am labs, will try again this afternoon -avoid nephrotoxic agents when possible -Renal function is improved and normalized (5) Wound of right shoulder: Reported chronic wound to R shoulder with noted foul smelling purulent discharge noted on 05/26/18 and pt was started on Bactrim. Outpatient wound culture: staph aureus which was resistant to PCN G. Pt afebrile. 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 Hx R humeral fracture with ORIF in 2015 then with failure of internal fixation and pt had R shoulder replacement in 03/2016. 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 This is similar in appearance to 08/29/2017. Findings suggest subacute/healing fracture through the proximal humeral shaft around the arthroplasty. -continue tylenol prn pain -for now will hold tramadol with pt's altered symptoms -Ortho consult, appreciate recommendations -Likely going to have conservative management -Has been trying to talk to the family members especially the daughter to update about her medical condition but not been able to -Discussed with the patient in detail repeatedly and the patient does not want any surgery -Likely to go ahead with conservative managemen -family member is not available he (7) Chronic anemia: Hx Chronic anemia Hgb: 11.2. Baseline 9-. -continue iron supplement -monitor H&H >10 (8) Parkinson disease: (9) Dementia: -continue home meds DVT Prophylaxis -Heparin SQ DNR as per [facility] records Follows with Dr Bailon for routine care Subjective 06/09 F/U altered speech, MIGUELANGEL Pt seen in examined. Sitting up in bed. Pt with hx Parkinson's, dementia. Today with less garbled speech, and a little more clear understanding of speech today. Spoke with staff shirley Otero who report pt at baseline with slurred speech and soft spoken and often uses wrong words for things but most of conversation is understandable. Pt reports recognizes this provider from yesterday, alert to person, still thinks year is 1986 or 1988, knows it is winter, reports remembers being in this facility in past but unsure of name. Staff at [facility] also report that pt has intermittent visual hallucinations of pets/animals or family members and pt has pending referral to geriatric psych. No signs of hallucinations during exam this morning. Denies any further CHUN today. Denies N/V, or abdominal pain. Denies R shoulder pain currently, has chronic limited ROM and wound. Denies dizziness, CP, SOB, paresthesias. 06/10 She is an 83-year-old female with significant past medical history of dementia, Parkinson's disease, chronic wound on the right shoulder and almost bedbound status was admitted with change in mental status, weakness and possible garbled speech. The patient was seen and examined in medical floor Remains stable today and communicating reasonably well Denies any significant symptoms Discussed the management of her right shoulder dislocation and infection in detail with She does not want to have any surgery Try to call her daughter multiple times and left a message for her to reply 06/11 The patient was noted to be drowsy this morning with questionable right facial droop and drooling She did not respond to any questions But noted to have no distress at rest Physical Exam 2 Vital Signs (Past 24 Hours): Last Vital Signs Temp 36.6 C 06/11/18 07:46 Pulse 72 06/11/18 07:46 Resp 16 06/11/18 07:46 BP 115/73 06/11/18 07:46 Pulse Ox 94 06/11/18 07:46 Constitutional: WD/WN, vitals as above Eyes: PERRL, conjunctivae normal, anicteric sclerae ENMT: external ear and nose normal, oropharynx normal Respiratory: normal respiratory effort; no respiratory distress Auscultation: + diminished lung sounds; no crackles and no wheezes Cardiovascular: Rate/Rhythm: regular rate and regular rhythm Heart Sounds: normal S1 and normal S2 Gastrointestinal (Abdomen): Inspection/Auscultation: abdomen normal to inspection and normal bowel sounds Musculoskeletal: Shoulder: + shoulder abnormal to inspection (Right shoulder dislocation with a discharging sinus/wound anteriorly) Neurologic: Not been communicating. Minimal right facial droop noted. COMMUNICATION EQUIPMENT MECHANIC examination was not possible Results & Data Medications Administered Current Inpatient Medications Acetaminophen (Tylenol) 650 mg PO Q4H PRN PRN Reason: Pain or Fever Stop: 07/08/18 16:53 Last Admin: 06/09/18 10:43 Dose: 650 mg Carbidopa/Levodopa (Sinemet 25/100 Mg) 1 tab PO TID [facility] Stop: 07/08/18 20:59 Last Admin: 06/11/18 08:47 Dose: Not Given Donepezil HCl (Aricept) 5 mg PO HS [facility] Stop: 07/08/18 20:59 Last Admin: 06/10/18 20:51 Dose: 5 mg Entacapone (Comtan) 200 mg PO TID [facility] Stop: 07/08/18 20:59 Last Admin: 06/11/18 08:47 Dose: Not Given Ferrous Sulfate (Feosol) 325 mg PO QAM [facility] Stop: 07/09/18 08:59 Last Admin: 06/11/18 08:47 Dose: Not Given Heparin Sodium (Porcine) (Heparin Sodium (Porcine)) 5,000 units SQ Q8 [facility] Stop: 07/08/18 21:59 Last Admin: 06/11/18 06:13 Dose: Not Given Ceftriaxone Sodium (Rocephin) 1,000 mg in 50 mls @ 100 mls/hr IV Q24H [facility] Stop: 06/18/18 16:59 Last Infusion: 06/10/18 18:30 Dose: Infused Daptomycin 225 mg/ Syringe 4.5 mls @ 3 mls/min IV Q24H [facility]; Protocol Stop: 06/18/18 17:59 Miscellaneous Information (Consult) 1 ea N/A UD PRN PRN Reason: Consult Stop: 07/08/18 17:05 Polyethylene Glycol (Miralax Powder Packet) 17 gm PO DAILY PRN PRN Reason: Constipation Stop: 07/08/18 19:05 Ranitidine HCl (Zantac) 150 mg PO HS [facility] Stop: 07/08/18 20:59 Last Admin: 06/10/18 20:52 Dose: 150 mg Sennosides (Senokot) 8.6 mg PO HS [facility] Stop: 07/08/18 20:59 Last Admin: 06/10/18 20:51 Dose: 8.6 mg _ (1) Altered mental status Altered mental status type: unspecified Coma depth: Coma timing: Qualified Code(s): R41.82 - Altered mental status, unspecified
[2018-06-11] MEDS: cefTRIAXone SODIUM 1,000 MG/50 ML BAG IV SCH (17:33)
[2018-06-11] MEDS ORDERED: DAPTOmycin 225 MG in SYRINGE 0 ML IV SCH (18:00)
[2018-06-11] MEDS: DONEPEZIL HCL 5 MG TAB PO SCH (20:58)
[2018-06-11] MEDS: SENNA 8.6 MG TAB PO SCH (20:59)
[2018-06-12] MEDS: HEPARIN SOD 5,000 UNIT/0.5 ML VIAL SQ SCH ×3 (05:40→20:56)
[2018-06-12] MEDS: ENTACAPONE 200 MG TAB PO SCH ×3 (08:08→20:56)
[2018-06-12] MEDS: CARBIDOPA/LEVODOPA 25/100MG TAB PO SCH ×3 (08:08→20:56)
[2018-06-12] MEDS: FERROUS SULFATE 325 MG TAB PO SCH (08:08)
--- NOTE | 2018-06-12 11:13 | Infectious Disease Consult ---
Date of Consultation June 12, 2018 Assessment & Plan (1) Prosthetic shoulder infection: will check esr. continue with rocephin, will stop dapto. previous culture reported as MSSA. would suggest 6 weeks IV rocephin, will need weekly cbc, cmp, esr. will then likely transition to po kelflex for suppression. would avoid additional bactrim, likely cuase for elevated creat and mental status change. History of Present Illness Attending Physician: Jono Mora MD pt admitted from [facility] with changed in mental status, underlying Parkinsons, ct/ mri brain negative for acute event. Has a h/o shoulder surgery in 2016- per chart pt recently had wound opening and purulent drainage from site, culture reportedly done as outpatient 05/26 and grew MSSA, resistant to pcn only (per chart). Pt was started on bactrim at [facility] upon culture return. Creat elevated to 1.86 in ER, bactrim held, creat returned to baseline. was placed on rocephin and dapto emperically in Er, tolerating well. wbc 9.7. 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 blood cultures negative. Ortho eval done, no surgery planned, suggested IV abx then transition to po suprressive agent. Pt states she is having mild shoulder pain, denies f/c, afebrile since admission, no bleeding from wound. denies sob, cp, no n/v/d/abd pain. Allergies Allergy/AdvReac Type Severity Reaction Status Date / Time morphine Allergy Mild RASH Verified 06/08/18 11:56 Home Medications Home Medications Medication Instructions Recorded Confirmed Type acetaminophen 325 mg tablet 650 mg PO Q6H PRN tab 01/12/18 06/08/18 History acetaminophen 500 mg capsule 1,000 mg PO .q 12 cap 01/12/18 06/08/18 History calcium carbonate 600 mg-vitamin 600 tab PO DAILY tab 01/12/18 06/08/18 History D3 1,000 unit-vitamin K2 90 mcg tab carbidopa 25 mg-levodopa 100 1 tab PO TID 01/12/18 06/08/18 History mg-entacapone 200 mg tablet diclofenac sodium 75 mg 75 mg PO BID 01/12/18 06/08/18 History tablet,delayed release donepezil 5 mg tablet 5 mg PO HS tab 01/12/18 06/08/18 History polyethylene glycol 3350 17 17 gm PO QAM gm 01/12/18 06/08/18 History gram/dose oral powder ranitidine 150 mg tablet 150 mg PO HS tab 01/12/18 06/08/18 History ferrous sulfate 325 mg PO QAM 06/08/18 06/08/18 History sennosides [senna] 8.6 mg PO HS 06/08/18 06/08/18 History sulfamethoxazole-trimethoprim 1 tab PO BID 06/08/18 06/08/18 History tramadol 25 mg PO Q6H PRN 06/08/18 06/08/18 History Patient History Medical History Chronic anemia (Chronic) Parkinson disease (Chronic) Dementia (Chronic) Scoliosis (Chronic) Dementia (Chronic) Fall (Chronic) Femoral neck fracture (Chronic) Fracture of right humerus (Chronic) Parkinsons (Chronic) S/p left hip fracture (Chronic) Scoliosis (Chronic) Surgical History History of left hip replacement (Resolved) History of arthroplasty of right shoulder (Resolved) 2016 - Dr Morris Social History Current Living Situation: Shelter Current Living Situation Comment: [facility], memory care unit Feels Safe at Home: Yes Safety Concerns: Feels Safe At This Time Smoking Status: Never smoker Do You Dip or Chew Tobacco: No Hx Alcohol Use: No Hx Substance Use: No Communication Ability: Impaired Review of Systems remaining ros reviewed and are negative Physical Exam 2 Vital Signs (Past 24 Hours): Last Vital Signs Temp 36.9 C 06/12/18 07:22 Pulse 102 H 06/12/18 07:22 Resp 16 06/12/18 07:22 BP 124/85 06/12/18 07:22 Pulse Ox 91 06/12/18 07:22 Constitutional: well developed, well nourished, cooperative and comfortable; no acute distress Eyes: PERRL, conjunctivae normal, anicteric sclerae ENMT: external ear and nose normal, oropharynx normal Neck: normal visual inspection Respiratory: normal respiratory effort, lungs clear to auscultation Auscultation: + diminished lung sounds Cardiovascular: RRR, no murmur, no edema Gastrointestinal (Abdomen): normal bowel sounds, soft, nontender, no hepatosplenomegaly Musculoskeletal: Head/Neck/Chest: + head abnormal to inspection, normocephalic , head atraumatic and neck supple Extremities: + limited ROM of extremities Skin: no rashes, warm and dry right shoulder wound with min dried purulent drainage, no warmth, no erythema, min tenderness Psychiatric: Orientation: alert, oriented to person, oriented to time and cooperative Results & Data Laboratory Results Microbiology 06/08/18 17:25 Shoulder,Right Gram Stain - Final 06/08/18 17:25 Shoulder,Right Wound Culture - Final Coag negative Staphylococcus 06/08/18 17:20 Blood Blood Culture - Preliminary No growth to date. 06/08/18 17:19 Blood Blood Culture - Preliminary No growth to date.
--- NOTE | 2018-06-12 13:46 | Hospitalist Progress Note ---
Date of Service June 12, 2018 Assessment & Plan (1) Metabolic encephalopathy: Likely contributed by infection and dehydration Seems to be at her baseline now Seems to be more drowsy today without any apparent distress Cleared and seems to be at baseline (2) Altered mental status: Pt with hx Parkinson's, dementia. Reported pt with increased garbled speech today with lethargy, global weakness and CHUN In ER no leukocytosis. UA unremarkable. CT HEAD: No acute intracranial findings. Sphenoid sinus air-fluid level. Multiple opacified ethmoid air cells. CXR: No acute cardiopulmonary findings. May be secondary to infection -MRI to r/o stroke/lesion-not yet done -neuro checks Q4H -Speech abnormality seems to be chronic and no deterioration -Does not have any other neurological symptom to suggest any stroke -MRI of the head has been negative for any stroke (3) Speech abnormality: Pt with hx Parkinson's, dementia. Admitted with increased garbled speech, lethargy, global weakness and CHUN CT HEAD: No acute intracranial findings. Sphenoid sinus air-fluid level. Multiple opacified ethmoid air cells. CXR: No acute cardiopulmonary findings. UA unremarkable. No leukocytosis Probable metabolic encephalopathy secondary to R shoulder infection -Repeat CT of the abdomen did not show any significant abnormality but he did show bilateral sinusitis Possible sinus infection Has been on antibiotics that should cover sinusitis -Today improved speech - still with some slurred/garbled speech seems like close to pt's baseline -MRI to r/o stroke/lesion pending-negative -PT/OT eval -Doubt any TIA and/or stroke-has been ruled out -Heart symptomatology seems to be chronic in nature -Mental and physical condition are at baseline (4) MIGUELANGEL (acute kidney injury): Admission labs with BUN: 57, Cr: 1.8, GFR: 24, BUN/Cr ratio: 30. Pt appeared dehydrated Baseline Cr 0.9 with baseline GFR 58 to >60 Pt had been on bactrim and diclofenac -IVF -Bactrim discontinued and diclofenac held -06/09/18 - pt refused am labs, will try again this afternoon -avoid nephrotoxic agents when possible -Renal function is improved and normalized (5) Wound of right shoulder: Reported chronic wound to R shoulder with noted foul smelling purulent discharge noted on 05/26/18 and pt was started on Bactrim. Outpatient wound culture: staph aureus which was resistant to PCN G. Pt afebrile. 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 Hx R humeral fracture with ORIF in 2015 then with failure of internal fixation and pt had R shoulder replacement in 03/2016. 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 This is similar in appearance to 08/29/2017. Findings suggest subacute/healing fracture through the proximal humeral shaft around the arthroplasty. -continue tylenol prn pain -for now will hold tramadol with pt's altered symptoms -Ortho consult, appreciate recommendations -Likely going to have conservative management -Has been trying to talk to the family members especially the daughter to update about her medical condition but not been able to -Discussed with the patient in detail repeatedly and the patient does not want any surgery -Likely to go ahead with conservative managemen -family member is not available he -No acute symptoms (7) Chronic anemia: Hx Chronic anemia Hgb: 11.2. Baseline 9-10. -continue iron supplement -monitor H&H >10 (8) Parkinson disease: (9) Dementia: -continue home meds DVT Prophylaxis -Heparin SQ DNR as per [facility] records Follows with Dr Bailon for routine care Subjective 06/09 F/U altered speech, MIGUELANGEL Pt seen in examined. Sitting up in bed. Pt with hx Parkinson's, dementia. Today with less garbled speech, and a little more clear understanding of speech today. Spoke with staff shirley Otero who report pt at baseline with slurred speech and soft spoken and often uses wrong words for things but most of conversation is understandable. Pt reports recognizes this provider from yesterday, alert to person, still thinks year is 1986 or 1988, knows it is winter, reports remembers being in this facility in past but unsure of name. Staff at [facility] also report that pt has intermittent visual hallucinations of pets/animals or family members and pt has pending referral to geriatric psych. No signs of hallucinations during exam this morning. Denies any further CHUN today. Denies N/V, or abdominal pain. Denies R shoulder pain currently, has chronic limited ROM and wound. Denies dizziness, CP, SOB, paresthesias. 06/10 She is an 83-year-old female with significant past medical history of dementia, Parkinson's disease, chronic wound on the right shoulder and almost bedbound status was admitted with change in mental status, weakness and possible garbled speech. The patient was seen and examined in medical floor Remains stable today and communicating reasonably well Denies any significant symptoms Discussed the management of her right shoulder dislocation and infection in detail with She does not want to have any surgery Try to call her daughter multiple times and left a message for her to reply 06/11 The patient was noted to be drowsy this morning with questionable right facial droop and drooling She did not respond to any questions But noted to have no distress at rest 06/12 Patient was seen and examined in medical floor She has been stable Her investigations for stroke has been normal She denies any symptoms Physical Exam 2 Vital Signs (Past 24 Hours): Last Vital Signs Temp 36.4 C L 06/12/18 11:49 Pulse 80 06/12/18 11:49 Resp 16 06/12/18 11:49 BP 110/66 06/12/18 11:49 Pulse Ox 100 06/12/18 11:49 Constitutional: WD/WN, vitals as above Eyes: PERRL, conjunctivae normal, anicteric sclerae ENMT: external ear and nose normal, oropharynx normal Respiratory: normal respiratory effort; no respiratory distress Auscultation: + diminished lung sounds; no crackles and no wheezes Cardiovascular: Rate/Rhythm: regular rate and regular rhythm Heart Sounds: normal S1 and normal S2 Gastrointestinal (Abdomen): Inspection/Auscultation: abdomen normal to inspection and normal bowel sounds Musculoskeletal: Shoulder: + shoulder abnormal to inspection (Right shoulder dislocation with a discharging sinus/wound anteriorly) Neurologic: moves all extremities (Less so with right upper extremity), awake and + confused (Pleasantly confused) Speech / Cognition: + expressive aphasia Results & Data Medications Administered Current Inpatient Medications Acetaminophen (Tylenol) 650 mg PO Q4H PRN PRN Reason: Pain or Fever Stop: 07/08/18 16:53 Last Admin: 06/09/18 10:43 Dose: 650 mg Carbidopa/Levodopa (Sinemet 25/100 Mg) 1 tab PO TID [facility] Stop: 07/08/18 20:59 Last Admin: 06/12/18 08:08 Dose: 1 tab Donepezil HCl (Aricept) 5 mg PO HS [facility] Stop: 07/08/18 20:59 Last Admin: 06/11/18 20:58 Dose: 5 mg Entacapone (Comtan) 200 mg PO TID [facility] Stop: 07/08/18 20:59 Last Admin: 06/12/18 08:08 Dose: 200 mg Ferrous Sulfate (Feosol) 325 mg PO QAM [facility] Stop: 07/09/18 08:59 Last Admin: 06/12/18 08:08 Dose: 325 mg Heparin Sodium (Porcine) (Heparin Sodium (Porcine)) 5,000 units SQ Q8 [facility] Stop: 07/08/18 21:59 Last Admin: 06/12/18 05:40 Dose: Not Given Ceftriaxone Sodium (Rocephin) 1,000 mg in 50 mls @ 100 mls/hr IV Q24H [facility] Stop: 06/18/18 16:59 Last Infusion: 06/11/18 19:26 Dose: Infused Polyethylene Glycol (Miralax Powder Packet) 17 gm PO DAILY PRN PRN Reason: Constipation Stop: 07/08/18 19:05 Ranitidine HCl (Zantac) 150 mg PO [facility] Stop: 07/08/18 20:59 Last Admin: 06/11/18 20:58 Dose: 150 mg Sennosides (Senokot) 8.6 mg PO [facility] Stop: 07/08/18 20:59 Last Admin: 06/11/18 20:59 Dose: 8.6 mg _ (1) Altered mental status Altered mental status type: unspecified Coma depth: Coma timing: Qualified Code(s): R41.82 - Altered mental status, unspecified
[2018-06-12 15:37] LABS: BUN Creatinine Ratio 32.7 (10-20); Calcium 8.5 mg/dl (8.5-10.1); Creatinine Clr Calc Pharmacy 49.5 ml/min; Est GFR (African American) 77.2; Est GFR (Non-African American) 66.6; Magnesium 2.4 mg/dl (1.8-2.4); Potassium 3.7 mmol/L (3.5-5.1)
[2018-06-12] MEDS: cefTRIAXone SODIUM 1,000 MG/50 ML BAG IV SCH (16:32)
[2018-06-12] MEDS: DONEPEZIL HCL 5 MG TAB PO SCH (20:56)
[2018-06-12] MEDS: SENNA 8.6 MG TAB PO SCH (20:56)
[2018-06-13] MEDS: HEPARIN SOD 5,000 UNIT/0.5 ML VIAL SQ SCH ×2 (05:34→13:29)
[2018-06-13] MEDS: CARBIDOPA/LEVODOPA 25/100MG TAB PO SCH ×2 (07:17→13:29)
[2018-06-13] MEDS: ENTACAPONE 200 MG TAB PO SCH ×2 (07:17→13:29)
[2018-06-13] MEDS: FERROUS SULFATE 325 MG TAB PO SCH (07:17)
--- NOTE | 2018-06-13 10:50 | Infectious Disease Progress Nt ---
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 continue with rocephin, will previous culture reported as MSSA. would suggest 6 weeks IV rocephin, will need weekly cbc, cmp, esr. will then likely transition to po kelflex for suppression. would avoid additional bactrim, likely cuase for elevated creat and mental status change. Subjective Patient is seen in follow-up today. She remains on Rocephin for infected right shoulder hardware. Her previous outpatient culture grew MSSA. She is tolerating antibiotics well. Today she is somewhat more awake. She denies any fevers or chills. She denies any abdominal pain nausea vomiting or diarrhea. She appears to be tolerating antibiotics well. Her blood cultures from the remain negative. She is consented for PICC line. The plan is to give a course of intravenous antibiotics and then follow up with oral suppression as she is deemed not a surgical candidate. Her remaining review of systems is limited but negative except for as noted above. Physical Exam 2 Vital Signs (Past 24 Hours): Last Vital Signs Temp 36.7 C 06/13/18 07:49 Pulse 86 06/13/18 07:49 Resp 18 06/13/18 04:31 BP 130/76 06/13/18 07:49 Pulse Ox 96 06/13/18 07:49 Constitutional: well developed, well nourished, cooperative and comfortable; no acute distress Eyes: PERRL, conjunctivae normal, anicteric sclerae ENMT: external ear and nose normal, oropharynx normal Neck: normal visual inspection Respiratory: normal respiratory effort, lungs clear to auscultation Auscultation: + diminished lung sounds Cardiovascular: RRR, no murmur, no edema Gastrointestinal (Abdomen): normal bowel sounds, soft, nontender, no hepatosplenomegaly Musculoskeletal: Head/Neck/Chest: + head abnormal to inspection, normocephalic , head atraumatic and neck supple Extremities: + limited ROM of extremities Skin: no rashes, warm and dry Psychiatric: Orientation: alert, oriented to person, oriented to time and cooperative Results & Data Laboratory Results Microbiology 06/08/18 17:25 Shoulder,Right Gram Stain - Final 06/08/18 17:25 Shoulder,Right Wound Culture - Final Coag negative Staphylococcus 06/08/18 17:20 Blood Blood Culture - Preliminary No growth to date. 06/08/18 17:19 Blood Blood Culture - Preliminary No growth to date.
[2018-06-13 12:52] LABS: Basophils # (auto) 0.02 K/uL (0-0.2); Basophils % (auto) 0.2 %; Eosinophils # (auto) 0.15 K/uL (0-0.5); Eosinophils % (auto) 1.4 %; Hematocrit (blood only) 32.8 % (37-47); Hemoglobin 10.2 g/dL (12.0-16.0); Immature Granulocytes # (auto) 0.05 K/uL (0.00-0.02); Immature Granulocytes % (auto) 0.5 %; Lymphocytes # (auto) 2.58 K/uL (1.2-3.4); Lymphocytes % (auto) 23.6 %; Mean Corpuscular Hgb Conc 31.1 g/dL (32-36); Mean Corpuscular Volume 84.3 fL (80-100); Mean Platelet Volume 8.7 fL (7.4-10.4); Monocytes # (auto) 0.84 K/uL (0.11-0.59); Monocytes % (auto) 7.7 %; Neutrophils % (auto) 66.6 %; Platelet Count 352 K/uL (130-400); RDW Coefficient of Variation 15.9 % (11.5-14.5); RDW Standard Deviation 48.5 fL (36.4-46.3); Red Blood Count 3.89 M/uL (4.2-5.4); White Blood Count 10.94 K/uL (4.8-10.8)
[2018-06-13 13:12] LABS: Albumin Level 2.9 gm/dl (3.4-5.0); BUN Creatinine Ratio 37.4 (10-20); Creatinine Clr Calc Pharmacy 54.1 ml/min; Est GFR (Non-African American) 74.2; Potassium 3.7 mmol/L (3.5-5.1)
[2018-06-13 13:17] LABS: Albumin Globulin Ratio 0.6 (0.9-2); Bilirubin,Total 0.3 mg/dl (0.2-1); Globulin 4.6 gm/dl (2.5-4.0); Total Protein 7.5 gm/dl (6.4-8.2)
--- NOTE | 2018-06-13 16:10 | Hospitalist Progress Note ---
Date of Service June 13, 2018 Assessment & Plan (1) Metabolic encephalopathy: Likely contributed by infection and dehydration Seems to be at her baseline now Seems to be more drowsy today without any apparent distress No more confusion Metabolic encephalopathy is cleared (2) Altered mental status: Pt with hx Parkinson's, dementia. Reported pt with increased garbled speech today with lethargy, global weakness and CHUN In ER no leukocytosis. UA unremarkable. CT HEAD: No acute intracranial findings. Sphenoid sinus air-fluid level. Multiple opacified ethmoid air cells. CXR: No acute cardiopulmonary findings. May be secondary to infection -MRI to r/o stroke/lesion-not yet done -neuro checks Q4H -Speech abnormality seems to be chronic and no deterioration -Does not have any other neurological symptom to suggest any stroke -MRI of the head has been negative for any stroke -She is at her baseline for mental status -No stroke identified (3) Speech abnormality: Pt with hx Parkinson's, dementia. Admitted with increased garbled speech, lethargy, global weakness and CHUN CT HEAD: No acute intracranial findings. Sphenoid sinus air-fluid level. Multiple opacified ethmoid air cells. CXR: No acute cardiopulmonary findings. UA unremarkable. No leukocytosis Probable metabolic encephalopathy secondary to R shoulder infection -Repeat CT of the abdomen did not show any significant abnormality but he did show bilateral sinusitis Possible sinus infection Has been on antibiotics that should cover sinusitis -Today improved speech - still with some slurred/garbled speech seems like close to pt's baseline -MRI to r/o stroke/lesion pending-negative -PT/OT eval -Doubt any TIA and/or stroke-has been ruled out -Heart symptomatology seems to be chronic in nature -Mental and physical condition are at baseline (4) MIGUELANGEL (acute kidney injury): Admission labs with BUN: 57, Cr: 1.8, GFR: 24, BUN/Cr ratio: 30. Pt appeared dehydrated Baseline Cr 0.9 with baseline GFR 58 to >60 Pt had been on bactrim and diclofenac -IVF -Bactrim discontinued and diclofenac held -06/09/18 - pt refused am labs, will try again this afternoon -avoid nephrotoxic agents when possible -Renal function is improved and normalized (5) Wound of right shoulder: Reported chronic wound to R shoulder with noted foul smelling purulent discharge noted on 05/26/18 and pt was started on Bactrim. Outpatient wound culture: staph aureus which was resistant to PCN G. Pt afebrile. Initial lactic acid WNL and initial WBC: 8.9 -wound culture pending -blood culture pending -Rocephin, daptomycin -wound consult -We will continue current antibiotic -Likely to need prolonged course of antibiotic -Appreciate ID input and recommendation- Will need 3 weeks of IV antibiotic and followed by oral suppression None of the family members including the daughter is available to update and to get consent Talk to daughter and got the consent for PICC line She will have intravenous ceftriaxone 2 g daily for 5 weeks and oral Keflex after that She will be transferred to [facility] today (6) Shoulder subluxation, 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 Hx R humeral fracture with ORIF in 2015 then with failure of internal fixation and pt had R shoulder replacement in 03/2016. 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 This is similar in appearance to 08/29/2017. Findings suggest subacute/healing fracture through the proximal humeral shaft around the arthroplasty. -continue tylenol prn pain -for now will hold tramadol with pt's altered symptoms -Ortho consult, appreciate recommendations -Likely going to have conservative management -Has been trying to talk to the family members especially the daughter to update about her medical condition but not been able to -Discussed with the patient in detail repeatedly and the patient does not want any surgery -Likely to go ahead with conservative managemen -family member is not available he -No acute symptoms (7) Chronic anemia: Hx Chronic anemia Hgb: 11.2. Baseline 9-10. -continue iron supplement -monitor H&H >10 (8) Parkinson disease: Seems to be stable We will continue current medications (9) Dementia: -continue home meds DVT Prophylaxis -Heparin SQ DNR as per [facility] records Follows with Dr Bailon for routine care Discharged to [facility] today Subjective 06/09 F/U altered speech, MIGUELANGEL Pt seen in examined. Sitting up in bed. Pt with hx Parkinson's, dementia. Today with less garbled speech, and a little more clear understanding of speech today. Spoke with staff shirley Otero who report pt at baseline with slurred speech and soft spoken and often uses wrong words for things but most of conversation is understandable. Pt reports recognizes this provider from yesterday, alert to person, still thinks year is 1986 or 1988, knows it is winter, reports remembers being in this facility in past but unsure of name. Staff at [facility] also report that pt has intermittent visual hallucinations of pets/animals or family members and pt has pending referral to geriatric psych. No signs of hallucinations during exam this morning. Denies any further CHUN today. Denies N/V, or abdominal pain. Denies R shoulder pain currently, has chronic limited ROM and wound. Denies dizziness, CP, SOB, paresthesias. 06/10 She is an 83-year-old female with significant past medical history of dementia, Parkinson's disease, chronic wound on the right shoulder and almost bedbound status was admitted with change in mental status, weakness and possible garbled speech. The patient was seen and examined in medical floor Remains stable today and communicating reasonably well Denies any significant symptoms Discussed the management of her right shoulder dislocation and infection in detail with She does not want to have any surgery Try to call her daughter multiple times and left a message for her to reply 06/11 The patient was noted to be drowsy this morning with questionable right facial droop and drooling She did not respond to any questions But noted to have no distress at rest 06/12 Patient was seen and examined in medical floor She has been stable Her investigations for stroke has been normal She denies any symptoms 06/13 The patient was seen and examined the medical floor She has been feeling a lot better today Denies any symptoms Physical Exam 2 Vital Signs (Past 24 Hours): Last Vital Signs Temp 36.5 C 06/13/18 15:00 Pulse 72 06/13/18 15:00 Resp 16 06/13/18 15:00 BP 120/75 06/13/18 15:00 Pulse Ox 95 06/13/18 15:00 Physical Exam: Lying in bed comfortably Constitutional: WD/WN, vitals as above Eyes: PERRL, conjunctivae normal, anicteric sclerae ENMT: external ear and nose normal, oropharynx normal Respiratory: normal respiratory effort; no respiratory distress Auscultation: + diminished lung sounds; no crackles and no wheezes Cardiovascular: Rate/Rhythm: regular rate and regular rhythm Heart Sounds: normal S1 and normal S2 Gastrointestinal (Abdomen): Inspection/Auscultation: abdomen normal to inspection and normal bowel sounds Musculoskeletal: Shoulder: + shoulder abnormal to inspection (Right shoulder dislocation with a discharging sinus/wound anteriorly) Neurologic: moves all extremities (Less so with right upper extremity), awake and + confused (Pleasantly confused) Speech / Cognition: + expressive aphasia Results & Data Laboratory Results Short CBC 06/13/18 Range/Units 12:35 WBC 10.94 H (4.8-10.8) K/uL Hgb 10.2 L (12.0-16.0) g/dL Hct 32.8 L (37-47) % Plt Count 352 (130-400) K/uL BMP 06/13/18 12:35 Sodium 138 Potassium 3.7 Chloride 108 H Carbon Dioxide 22 BUN 28 H Creatinine 0.75 Glucose 126 H Calcium 9.0 Liver Function 06/13/18 Range/Units 12:35 Total Bilirubin 0.3 (0.2-1) mg/dl AST 12 L (15-37) U/L ALT 10 L (12-78) U/L Alkaline Phosphatase 76 (45-117) U/L Albumin 2.9 L (3.4-5.0) gm/dl Medications Administered Current Inpatient Medications Acetaminophen (Tylenol) 650 mg PO Q4H PRN PRN Reason: Pain or Fever Stop: 07/08/18 16:53 Last Admin: 06/09/18 10:43 Dose: 650 mg Carbidopa/Levodopa (Sinemet 25/100 Mg) 1 tab PO TID [facility] Stop: 07/08/18 20:59 Last Admin: 06/13/18 13:29 Dose: 1 tab Donepezil HCl (Aricept) 5 mg PO HS [facility] Stop: 07/08/18 20:59 Last Admin: 06/12/18 20:56 Dose: 5 mg Entacapone (Comtan) 200 mg PO TID [facility] Stop: 07/08/18 20:59 Last Admin: 06/13/18 13:29 Dose: 200 mg Ferrous Sulfate (Feosol) 325 mg PO QAM [facility] Stop: 07/09/18 08:59 Last Admin: 06/13/18 07:17 Dose: 325 mg Heparin Sodium (Porcine) (Heparin Sodium (Porcine)) 5,000 units SQ Q8 [facility] Stop: 07/08/18 21:59 Last Admin: 06/13/18 13:29 Dose: 5,000 units Ceftriaxone Sodium (Rocephin) 1,000 mg in 50 mls @ 100 mls/hr IV Q24H [facility] Stop: 06/18/18 16:59 Last Admin: 06/13/18 16:11 Dose: 100 mls/hr Polyethylene Glycol (Miralax Powder Packet) 17 gm PO DAILY PRN PRN Reason: Constipation Stop: 07/08/18 19:05 Ranitidine HCl (Zantac) 150 mg PO [facility] Stop: 07/08/18 20:59 Last Admin: 06/12/18 20:56 Dose: 150 mg Sennosides (Senokot) 8.6 mg PO [facility] Stop: 07/08/18 20:59 Last Admin: 06/12/18 20:56 Dose: 8.6 mg _ (1) Altered mental status Altered mental status type: unspecified Coma depth: Coma timing: Qualified Code(s): R41.82 - Altered mental status, unspecified
[2018-06-13] MEDS: cefTRIAXone SODIUM 1,000 MG/50 ML BAG IV SCH (16:11)
--- NOTE | 2018-06-13 17:01 | Discharge Summary ---
Date of Service June 13, 2018 Admission HPI Per Admitting Provider Pt is 83 y/o F with PMH Parkinson's, dementia presented to ER from [facility] for reported lethargy, garbled speech, weakness and reported CHUN this morning. Was evaluated approx 9am per records and reported global weakness, lethargy and pt had reported CHUN since waking up. [facility] records report pt's baseline is that she is oriented with speech limitations but can carry conversation and ambulates with walker. Currently pt oriented to person, knows her age, unsure of year, knows she has been to this facility before but is unsure of name or place. Pt reports some cough. Also reports vomiting and that she had some upper abdominal discomfort. Reports chronic constipation. She has hx R humeral fracture with ORIF in 02/2016 then with failure of internal fixation and pt had R shoulder replacement in 03/2016. It is reported that pt has chronic deformity and wound to R shoulder and that had some foul smelling purulent discharge noted on 05/26/18 and pt was started on Bactrim. wound culture : staph aureus which was resistant to PCN G. Pt reports had limited ROM R shoulder "for awhile", doesn't think had acute injury. Denies fever/chills, diaphoresis, N/V/D, dizziness, falls, vision changes, CP, SOB, rhinorrhea, paresthesias, urinary symptoms. Unable to obtain FH. Admission Exam Per Admitting Provider Vital Signs (Past 24 Hours): Last Vital Signs Temp 37.0 C 06/08/18 10:05 Pulse 76 06/08/18 14:42 Resp 15 06/08/18 14:42 BP 131/64 06/08/18 14:42 Pulse Ox 94 06/08/18 14:42 Physical Exam: General: no acute distress, WDWN Head: normocephalic, atraumatic Eyes: PERRL, EOM's intact, conjunctiva non-injected, anicteric ENT: normal inspection external ears, nose, mucous membranes dry Neck: supple, trachea midline, non-tender Lungs: clear, no respiratory distress, no wheezing/rhonchi/rales CV: RRR, no murmur, no pretibial edema Abd: normal BS, soft, upper abdominal tenderness to palpation Ext: no cyanosis, no calf tenderness; R shoulder: +wound with purulent drainage anterior shoulder, limited ROM R shoulder and R arm, distal pulses palpable, brisk capillary refill diffuse extremity weakness, able to move LUE, and straight leg raise BLE Neuro: A&O to person, unsure of place or time. n +flat faces, garbled speech, no facial drooping. 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 No stroke identified Discharge Exam Constitutional WD/WN, vitals as above Eyes PERRL, conjunctivae normal, anicteric sclerae ENMT external ear and nose normal, oropharynx normal Respiratory normal respiratory effort; no respiratory distress Auscultation: + diminished lung sounds; no crackles and no wheezes Cardiovascular Rate/Rhythm: regular rate and regular rhythm Heart Sounds: normal S1 and normal S2 Gastrointestinal (Abdomen) Inspection/Auscultation: abdomen normal to inspection and normal bowel sounds Musculoskeletal Shoulder: + shoulder abnormal to inspection (Right shoulder dislocation with a discharging sinus/wound anteriorly) Neurologic moves all extremities (Less so with right upper extremity), awake and + confused (Pleasantly confused) Speech / Cognition: + expressive aphasia Discharge Data Allergies Allergy/AdvReac Type Severity Reaction Status Date / Time morphine Allergy Mild RASH Verified 06/08/18 11:56 Consultations 06/08/18 14:21 ED Decision to Admit Stat 06/08/18 16:54 Consult Case Management - Discharge Planning Routine Consult Orthopedic Surgery Routine 06/12/18 09:42 Consult Infectious Diseases Routine Ordered Studies 06/08/18 10:58 CT head/brain wo con Stat 06/11/18 05:15 MR brain wo con Routine 06/11/18 09:16 CT head/brain wo con Stat 06/11/18 09:17 CT abd pelvis wo con Stat Hospital Course (1) Metabolic encephalopathy: Likely contributed by infection and dehydration Seems to be at her baseline now Seems to be more drowsy today without any apparent distress No more confusion Metabolic encephalopathy is cleared (2) Altered mental status: Pt with hx Parkinson's, dementia. Reported pt with increased garbled speech today with lethargy, global weakness and CHUN In ER no leukocytosis. UA unremarkable. CT HEAD: No acute intracranial findings. Sphenoid sinus air-fluid level. Multiple opacified ethmoid air cells. CXR: No acute cardiopulmonary findings. May be secondary to infection -MRI to r/o stroke/lesion-not yet done -neuro checks Q4H -Speech abnormality seems to be chronic and no deterioration -Does not have any other neurological symptom to suggest any stroke -MRI of the head has been negative for any stroke -She is at her baseline for mental status -No stroke identified (3) Speech abnormality: Pt with hx Parkinson's, dementia. Admitted with increased garbled speech, lethargy, global weakness and CHUN CT HEAD: No acute intracranial findings. Sphenoid sinus air-fluid level. Multiple opacified ethmoid air cells. CXR: No acute cardiopulmonary findings. UA unremarkable. No leukocytosis Probable metabolic encephalopathy secondary to R shoulder infection -Repeat CT of the abdomen did not show any significant abnormality but he did show bilateral sinusitis Possible sinus infection Has been on antibiotics that should cover sinusitis -Today improved speech - still with some slurred/garbled speech seems like close to pt's baseline -MRI to r/o stroke/lesion pending-negative -PT/OT eval -Doubt any TIA and/or stroke-has been ruled out -Heart symptomatology seems to be chronic in nature -Mental and physical condition are at baseline (4) MIGUELANGEL (acute kidney injury): Admission labs with BUN: 57, Cr: 1.8, GFR: 24, BUN/Cr ratio: 30. Pt appeared dehydrated Baseline Cr 0.9 with baseline GFR 58 to >60 Pt had been on bactrim and diclofenac -IVF -Bactrim discontinued and diclofenac held -06/09/18 - pt refused am labs, will try again this afternoon -avoid nephrotoxic agents when possible -Renal function is improved and normalized (5) Wound of right shoulder: Reported chronic wound to R shoulder with noted foul smelling purulent discharge noted on 05/26/18 and pt was started on Bactrim. Outpatient wound culture: staph aureus which was resistant to PCN G. Pt afebrile. Initial lactic acid WNL and initial WBC: 8.9 -wound culture pending -blood culture pending -Rocephin, daptomycin -wound consult -We will continue current antibiotic -Likely to need prolonged course of antibiotic -Appreciate ID input and recommendation- Will need 3 weeks of IV antibiotic and followed by oral suppression None of the family members including the daughter is available to update and to get consent Talk to daughter and got the consent for PICC line She will have intravenous ceftriaxone 2 g daily for 5 weeks and oral Keflex after that She will be transferred to [facility] today (6) Shoulder subluxation, 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 Hx R humeral fracture with ORIF in 2015 then with failure of internal fixation and pt had R shoulder replacement in 03/2016. 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 This is similar in appearance to 08/29/2017. Findings suggest subacute/healing fracture through the proximal humeral shaft around the arthroplasty. -continue tylenol prn pain -for now will hold tramadol with pt's altered symptoms -Ortho consult, appreciate recommendations -Likely going to have conservative management -Has been trying to talk to the family members especially the daughter to update about her medical condition but not been able to -Discussed with the patient in detail repeatedly and the patient does not want any surgery -Likely to go ahead with conservative managemen -family member is not available he -No acute symptoms (7) Chronic anemia: Hx Chronic anemia Hgb: 11.2. Baseline 9-10. -continue iron supplement -monitor H&H >10 (8) Parkinson disease: Seems to be stable We will continue current medications (9) Dementia: -continue home meds DVT Prophylaxis -Heparin SQ DNR as per [facility] records Follows with Dr Bailon for routine care Discharged to [facility] today Total Time Total Time Spent Total Time Spent (In Minutes): 40 minutes Total Time Includes: Examination of the Patient, Discharge Planning, Medication Reconciliation and Communication With Other Providers Discharge Plan Discharge Items Patient Disposition: Transfer Nursing Home Fac Reason For Visit: MIGUELANGEL,AMS Discharge Diagnosis: 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 No stroke identified Condition: Fair Discharge Goals: Decrease discomfort, Improve disease control and Improve function Activity: Resume your previous activity Non-emergency contact: Primary Care Provider Call non-emergency contact if: you have any medication questions Follow-up/Referrals: Rachel Bailon DO [Primary Care Provider] - (Will be followed up with [facility] provider at [facility]. Will need to have a follow-up appointment with infectious disease in 2-3 weeks.) Diet: Heart Healthy Addtl Provider Instructions: Please take precaution to avoid fall. Will need to have weekly CBC, comprehensive metabolic panel and ESR. Prescriptions: New entacapone 200 mg Tablet 200 mg PO TID 30 Days Qty: 90 RF: 0 ceftriaxone 2 gram recon soln 2 gm IV DAILY Qty: 35 RF: 0 tramadol [Ultram] 50 mg tablet 50 mg PO Q6H PRN (Reason: pain) Qty: 20 RF: 0 Continue ferrous sulfate 325 mg (65 mg iron) Tablet,Delayed Release (Dr/Ec) 325 mg PO QAM RF: 0 sennosides [senna] 8.6 mg Tablet 8.6 mg PO HS RF: 0 tramadol 50 mg Tablet 25 mg PO Q6H PRN (Reason: Pain, Moderate) RF: 0 Discontinued diclofenac sodium 75 mg tablet,delayed release (DR/EC) 75 mg PO BID RF: 0 sulfamethoxazole-trimethoprim 800-160 mg tablet 1 tab PO BID RF: 0 Stand-Alone Forms: [facility] Discharge Orders: Discharge Order (Routine); Ordered 06/13/18 Ordered By: Jono Mora Skilled Items Patient informed of condition?: Yes DNR: Yes Discharge Level of Care: Skilled Communicable Disease: No Discharge Prognosis: Stable Admission Data Admit Date/Time: 06/08/18 15:22 Attending Provider: Jono Mora Admit Provider: Matias Dietrich Primary Care Provider: Rachel Bailon Other Providers: Matias Dietrich ; Narciso Morris ; Joe Gamez Service: Telemetry Other Interventions: Discharge Summary Assessment (RN) Last Done: 06/13/18 16:25
== END 2018-06-13 18:30 | DRG 559 ==
LOC: ED 09:55 → 2N 15:22